=== PATIENT | female | born 1985 | race American Indian/Alaskan Native ===

== ENCOUNTER 2016-10-14 01:22 | Emergency (ER) | payer MEDICAID ==
[2016-10-14] MEDS ORDERED: TORADOL IM ONE (03:17)
[2016-10-14] MEDS ORDERED: PERCOCET 5/325 PO PRN (03:17)
[2016-10-14] MEDS ORDERED: PERCOCET 5/325 PO ONE (03:36)
[2016-10-14 04:17] LABS: Bilirubin,Urine NEG (Negative); Blood,Urine NEG (Negative); Ketones,Urine NEG (Negative); Leukocyte Esterase,Urine NEG (Negative); Mucus,Urine 2+ /HPF; Nitrite,Urine NEG (Negative); Protein,Urine <15 mg/dL mg/dL (Negative); Urobilinogen,Urine < 2.0 mg/dL (<2.0)
--- NOTE | 2016-10-14 04:48 | Ultrasound Report ---
FINAL REPORT PROCEDURE: US PELVIS TRANSVAGINAL WITH DOPPLER TECHNIQUE: Real-time transvaginal sonography in multiple planes of the pelvis was performed with image documentation. Grayscale, color flow Doppler imaging and velocity spectral waveform analysis of the ovaries was employed (duplex imaging). CPT 52977 and 46823 HISTORY: Left lower quadrant pelvic pain. History of ovarian cyst. COMPARISON: No prior studies are available for comparison. FINDINGS: The uterus measures 8.6 x 3.9 x 5.8 centimeters. The endometrium is normal measuring 0.7 centimeters. Overall the uterus shows no ultrasound abnormality. The right ovary measures 2.5 x 1.6 x 2.3 centimeters. The left ovary measures 2.9 x 1 9 x 2.5 centimeters. Blood flow seen to both ovaries by Doppler. Multiple small normal appearing follicular cysts noted in both ovaries. In the right ovary there is one slightly prominent follicle and/or small cyst measuring up to 1.2 centimeters. The ovaries show no ultrasound abnormality otherwise. There is no ultrasound evidence of free fluid. IMPRESSION: 1. There is a 1.2 centimeters slightly prominent follicle versus small nonspecific cyst in the right ovary. 2. Elsewhere in the right ovary and the left ovary several small normal appearing follicles noted 3. The uterus shows no ultrasound abnormality.
--- NOTE | 2016-10-14 04:56 | Ultrasound Report ---
FINAL REPORT PROCEDURE: US PELVIS TRANSABDOMINAL WITH DOPPLER TECHNIQUE: Real-time transabdominal sonography in multiple planes of the pelvis was performed with image documentation. Grayscale, color flow Doppler imaging and velocity spectral waveform analysis of the ovaries was employed (duplex imaging). CPT 21798 and 85332 HISTORY: Left lower quadrant pelvic pain. History of ovarian cyst. COMPARISON: No prior studies are available for comparison. FINDINGS: The uterus measures 8.6 x 3.9 x 5.8 centimeters. The endometrium is normal measuring 0.7 centimeters. Overall the uterus shows no ultrasound abnormality. The right ovary measures 2.5 x 1.6 x 2.3 centimeters. The left ovary measures 2.9 x 1 9 x 2.5 centimeters. Blood flow seen to both ovaries by Doppler. Multiple small normal appearing follicular cysts noted in both ovaries. In the right ovary there is one slightly prominent follicle and/or small cyst measuring up to 1.2 centimeters. The ovaries show no ultrasound abnormality otherwise. There is no ultrasound evidence of free fluid. IMPRESSION: 1. There is a 1.2 centimeters slightly prominent follicle versus small nonspecific cyst in the right ovary. 2. Elsewhere in the right ovary and the left ovary several small normal appearing follicles noted 3. The uterus shows no ultrasound abnormality.
--- NOTE | 2016-10-14 05:17 | Emergency Department Report ---
ED Abdominal Pain HPI - General Chief Complaint: Abdominal Pain Stated Complaint: OVARIN CYST PAIN/LT SIDE Time Seen by Provider: 10/14/16 02:57 Source: patient Mode of arrival: Ambulatory Limitations: No Limitations - History of Present Illness Initial Comments: 31-year-old female with a past medical history of ovarian cysts and tubal ligation presents to the hospital complaining of left lower abdominal pain 1 week. Patient states she has had similar pain in the past secondary to ovarian cyst and has pain intermittently since July. Pain rated 7/10 intensity, throbbing and cramping and burning, worse palpation, no relieving factors. Denies vomiting, dysuria, vaginal bleeding, or vaginal discharge. Positive intermittent nausea and 2 episodes of loose stools this week. She was last seen here July 2016 and diagnosed with a left-sided hemorrhagic cyst after surgery 05/30/2016 for the same cysts. Patient was subsequently put on control pills to control her cysts. 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) this Sunday. Severity scale (0 -10): 9 - Related Data Previous Rx's Medication Instructions Recorded Last Taken Type Loratadine [Claritin] 10 mg PO DAILY #30 tablet 11/23/14 Unknown Rx HYDROcodone/APAP 5-325 [[place] 1 each PO Q6HR PRN #14 tablet 07/26/16 Unknown Rx 5/325] Nitrofurantoin [place]/M-Cryst 100 mg PO Q12HR #14 capsule 07/26/16 Unknown Rx [Macrobid CAP] Docusate Sodium [Colace] 100 mg PO BID PRN #20 capsule 10/14/16 Unknown Rx Ibuprofen [Motrin] 800 mg PO Q8HR PRN #30 tablet 10/14/16 Unknown Rx Allergies Allergy/AdvReac Type Severity Reaction Status Date / Time banana Allergy throat Verified 05/23/16 11:23 itches ED Review of Systems ROS: Stated complaint: OVARIN CYST PAIN/LT SIDE Other details as noted in HPI Comment: All other systems reviewed and negative Other: Constitutional: No fevers chills or weight loss Eyes: No eye pain visual changes or discharge ENT: No ear pain or throat pain Neck: Denies pain Respiratory: Denies cough wheezing shortness of breath Cardiovascular: Denies chest pain, palpitations, syncope GI: As per HPI : Denies dysuria, urinary frequency, or urgency Musculoskeletal: Denies back pain, joint swelling Skin: Denies rash, lesions, erythema Neurologic: Denies headache, numbness, weakness Psychiatric: Denies suicidal ideation, hallucinations ED Past Medical Hx - Past Medical History Previous Medical History?: Yes Hx Arthritis: Yes Hx Headaches / Migraines: Yes Hx Asthma: Yes Additional medical history: Ovarian Cyst removed in 2016 - Surgical History Past Surgical History?: Yes Additional Surgical History: TUBAL LIGATION 2008. Ovarian Cyst Removal 05/31/2016 - Social History Smoking Status: Current Every Day Smoker Substance Use Type: Non Opiate Pain, Prescribed - Medications Home Medications: Home Medications Medication Instructions Recorded Confirmed Last Taken Type Loratadine [Claritin] 10 mg PO DAILY #30 tablet 11/23/14 Unknown Rx HYDROcodone/APAP 5-325 [[place] 1 each PO Q6HR PRN #14 tablet 07/26/16 Unknown Rx 5/325] Nitrofurantoin [place]/M-Cryst 100 mg PO Q12HR #14 capsule 07/26/16 Unknown Rx [Macrobid CAP] Docusate Sodium [Colace] 100 mg PO BID PRN #20 capsule 10/14/16 Unknown Rx Ibuprofen [Motrin] 800 mg PO Q8HR PRN #30 tablet 10/14/16 Unknown Rx ED Physical Exam - General Limitations: No Limitations - Other Other exam information: General: No limitations, patient is alert in no acute distress Head exam: Atraumatic, normocephalic Eyes exam: Normal appearance, pupils equal reactive to light, extraocular movements intact ENT: Moist mucous membrane, normal oropharynx Neck exam: Normal inspection, full range of motion, no meningismus nontender Respiratory exam: Clear to auscultation bilateral, no wheezes, rales, crackles Cardiovascular: Normal rate and rhythm, normal heart sounds Abdomen: Soft, nondistended, left lower quadrant tenderness, with normal bowel sounds, no rebound, or guarding : declined Extremity: Full range of motion normal inspection no deformity Back: Normal Inspection, full range of motion, no tenderness Neurologic: Alert, oriented x3, cranial nerves intact, no motor or sensory deficit Psychiatric: normal affect, normal mood Skin: Warm, dry, intact ED Course Vital Signs 10/14/16 10/14/16 01:34 03:09 Temperature 98.2 F Pulse Rate 107 H Respiratory 22 18 Rate Blood Pressure 140/103 O2 Sat by Pulse 100 98 Oximetry ED Medical Decision Making - Radiology Data Radiology results: report reviewed vaginal/pelvic ultrasound: 1.2 cm slightly prominent follicle versus small nonspecific cysts in the right ovary. No acute ultrasound ABNORMALITY OF THE UTERUS - Medical Decision Making Patient appears a left lower quadrant pain that is chronic and intermittent. Cough identified at this time. Urinalysis unremarkable. negative. Patient denies fever and states she has had similar pain in the past. We'll treat symptomatically encourage [employer] DELIVERY [employer]IVER follow-up as scheduled - Differential Diagnosis ovarian cyst, UTI, renal colic, diverticulitis Critical Care Time: No Critical care attestation.: If time is entered above; I have spent that time in minutes in the direct care of this critically ill patient, excluding procedure time. ED Disposition Clinical Impression: Intermittent left lower quadrant abdominal pain Disposition: DISCHARGED TO HOME OR SELFCARE Is pt being admited?: No Does the pt Need Aspirin: No Condition: Stable Instructions: Abdominal Pain (ED) Additional Instructions: Take the medication as prescribed. Return if symptoms worsen. Follow up will put her MILK DELIVERY DRIVER doctor as scheduled Prescriptions: Docusate Sodium [Colace] 100 mg PO BID PRN #20 capsule PRN Reason: Constipation Ibuprofen [Motrin] 800 mg PO Q8HR PRN #30 tablet PRN Reason: Pain Referrals: DARIAN JIANG MD [Primary Care Provider] - 3-5 Days XIOMARA MORTON MD [Staff Physician] - 3-5 Days Time of Disposition: 05:22
[2016-10-14 05:24] VITALS: BP 124/82
== END 2016-10-14 05:45 | disposition home or self-care (01) ==
LOC: ED 01:22
DX: R10.32 Left lower quadrant pain (principal); M19.90 Unspecified osteoarthritis, unspecified site; G43.909 Migraine, unspecified, not intractable, without status migrainosus; J45.909 Unspecified asthma, uncomplicated; F17.200 Nicotine dependence, unspecified, uncomplicated; Z98.51 Tubal ligation status; Z91.018 Allergy to other foods
CPT/HCPCS: 76830; 81001; 81025; 93975; 96372; 99283; J1885

== ENCOUNTER 2017-01-02 04:52 | Emergency (ER) | payer MEDICAID ==
[2017-01-02] MEDS ORDERED: TYLENOL ONE (04:57)
[2017-01-02] MEDS ORDERED: TYLENOL PO ONE (05:08)
[2017-01-02 05:36] LABS: Basophils % (Auto) 1.1 % (0.0-1.8); Eosinophils % (Auto) 3.3 % (0.0-4.3); Hematocrit 37.6 % (30.3-42.9); Hemoglobin 12.2 gm/dl (10.1-14.3); Mean Corpuscular HGB Conc 33 % (30-34); Mean Corpuscular Hemoglobin 27 pg (28-32); Mean Corpuscular Volume 83 fl (79-97); Platelet Count 331 K/mm3 (140-440); Red Blood Count 4.52 M/mm3 (3.65-5.03); Red Cell Distribution Width 13.8 % (13.2-15.2); White Blood Count 8.7 K/mm3 (4.5-11.0)
[2017-01-02 06:04] LABS: Alanine Aminotransferase 14 units/L (7-56); Albumin/Globulin Ratio 1.3 %; Alkaline Phosphatase 64 units/L (35-129); Anion Gap 18 mmol/L; BUN/Creatinine Ratio 18.88; Bilirubin,Total 0.2 mg/dL (0.1-1.2); Blood Urea Nitrogen 17 mg/dL (7-17); Carbon Dioxide 25 mmol/L (22-30); Chloride 104.7 mmol/L (98-107); Glucose 103 mg/dL (65-100); Lipase 40 units/L (13-60); Potassium 4.5 mmol/L (3.6-5.0); Sodium 143 mmol/L (137-145); Total Protein 7.2 g/dL (6.3-8.2)
[2017-01-02 08:10] LABS: Bilirubin,Urine NEG (Negative); Blood,Urine SM (Negative); Ketones,Urine TR mg/dL (Negative); Leukocyte Esterase,Urine NEG (Negative); Mucus,Urine 1+ /HPF; Nitrite,Urine NEG (Negative); Protein,Urine <15 mg/dL mg/dL (Negative); WBC,Urine < 1.0 /HPF (0.0-6.0)
[2017-01-02] MEDS ORDERED: TORADOL IV ONE (15:01)
--- NOTE | 2017-01-02 15:02 | Emergency Department Report ---
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 Patient states she is out of any pain medication. Patient has no nausea vomiting or diarrhea. Mode of arrival: private car Source: Patient old chart Began: Chronic Duration: Over a year Context: History of left ovarian cyst that has resolved. Quality: Dull Severity: 5 out of 10 Improved with: Nothing Worsened with: Nothing Associated signs and symptoms: See above ED Past Medical Hx - Past Medical History Previous Medical History?: Yes Hx Arthritis: Yes Hx Headaches / Migraines: Yes Hx Asthma: Yes Additional medical history: Ovarian Cyst removed in 2015 - Surgical History Past Surgical History?: Yes Additional Surgical History: TUBAL LIGATION 2008. Ovarian Cyst Removal 05/31/2016 - Social History Smoking Status: Current Every Day Smoker Substance Use Type: Alcohol - Medications Home Medications: Home Medications Medication Instructions Recorded Confirmed Last Taken Type Nitrofurantoin [place]/M-Cryst 100 mg PO Q12HR #14 capsule 07/26/16 Unknown Rx [Macrobid CAP] Docusate Sodium [Colace] 100 mg PO BID PRN #20 capsule 10/14/16 Unknown Rx HYDROcodone/APAP 5-325 [[place] 1 each PO Q6HR PRN #20 tablet 10/14/16 Unknown Rx 5-325 mg TAB] Ibuprofen [Motrin] 800 mg PO Q8HR PRN #30 tablet 10/14/16 Unknown Rx traMADol [Ultram 50 MG tab] 50 mg PO Q6HR PRN #14 tablet 01/02/17 Unknown Rx ED Review of Systems ROS: Stated complaint: ABD PAIN/NAUSEA Other details as noted in HPI ROS Constitutional: No fever ENT: No uri symptoms Cardiovascular: No chest pain Respiratory: No sob or cough GI: No nausea vomiting or diarrhea : No dysuria frequency or urgency, Skin: No rash Neuro: No focal weakness or numbness Psych: No depression Franky/lymph: No edema Physical Exam - Physical Exam Vital Signs: Vital Signs 01/02/17 05:03 Temperature 98.6 F Pulse Rate 109 H Respiratory 20 Rate Blood Pressure 154/105 [Right] O2 Sat by Pulse 100 Oximetry Physical Exam: GENERAL: The patient is well-developed well-nourished . HEENT: Normocephalic. Atraumatic. Extraocular motions are intact. Patient has moist mucous membranes. NECK: Supple. No meningitic signs are noted. There is no adenopathy noted. CHEST/LUNGS: Clear to auscultation. There is no respiratory distress noted. HEART/CARDIOVASCULAR: Regular. There is no tachycardia. There is no gallop rub or murmur. ABDOMEN: Abdomen is soft, nontender. Patient has normal bowel sounds. There is no abdominal distention. SKIN: There is no rash. There is no edema. There is no diaphoresis. NEURO: The patient is awake, alert, and oriented. The patient is cooperative. The patient has no focal neurologic deficits. The patient has normal speech. MUSCULOSKELETAL: There is no tenderness or deformity. There is no limitation range of motion. There is no evidence of acute injury. ED Course Vital Signs 01/02/17 05:03 Temperature 98.6 F Pulse Rate 109 H Respiratory 20 Rate Blood Pressure 154/105 [Right] O2 Sat by Pulse 100 Oximetry - Reevaluation(s) Reevaluation #1: 01/02/17 Patient given a shot of Toradol and will be referred back to her GI specialist. ED Medical Decision Making - Lab Data Result diagrams: 01/02/17 05:19 01/02/17 05:19 Laboratory Tests 01/02/17 01/02/17 01/02/17 05:19 05:19 07:31 Lipase 40 HCG, Qual Negative Ur Specific Pillow 1.032 H Urine Protein <15 mg/dl Ur Leukocyte Esterase Neg Urine WBC (Auto) < 1.0 Urine RBC (Auto) 6.0 Critical care attestation.: If time is entered above; I have spent that time in minutes in the direct care of this critically ill patient, excluding procedure time. ED Disposition Clinical Impression: Chronic abdominal pain Disposition: DISCHARGED TO HOME OR SELFCARE Is pt being admited?: No Does the pt Need Aspirin: No Condition: Stable Instructions: Abdominal Pain (ED) Prescriptions: traMADol [Ultram 50 MG tab] 50 mg PO Q6HR PRN #14 tablet PRN Reason: Pain Referrals: DARIAN JIANG MD [Primary Care Provider] - 3-5 Days MARYAM MOYER MD [Staff Physician] - 7-10 days Time of Disposition: 15:00
[2017-01-02 15:25] VITALS: BP 126/76
== END 2017-01-02 15:28 | disposition home or self-care (01) ==
LOC: ED 04:52
DX: R10.32 Left lower quadrant pain (principal); G89.29 Other chronic pain; M19.90 Unspecified osteoarthritis, unspecified site; G43.909 Migraine, unspecified, not intractable, without status migrainosus; J45.909 Unspecified asthma, uncomplicated; F17.200 Nicotine dependence, unspecified, uncomplicated; Z98.890 Other specified postprocedural states
CPT/HCPCS: 36415; 80053; 81001; 83690; 84703; 85025; 96374; 99283; J1885

== ENCOUNTER 2017-02-03 16:38 | Emergency (ER) | payer SELFPAY ==
[2017-02-03] MEDS ORDERED: DUONEB 0.5 MG-3 MG/3 ML SOLN IH ONE (16:58)
[2017-02-03 18:06] LABS: Hematocrit 38.1 % (30.3-42.9); Hemoglobin 12.4 gm/dl (10.1-14.3); Mean Corpuscular HGB Conc 33 % (30-34); Mean Corpuscular Hemoglobin 27 pg (28-32); Mean Corpuscular Volume 84 fl (79-97); Platelet Count 313 K/mm3 (140-440); Red Blood Count 4.55 M/mm3 (3.65-5.03); Red Cell Distribution Width 14.2 % (13.2-15.2); White Blood Count 13.4 K/mm3 (4.5-11.0)
[2017-02-03 18:17] LABS: Anion Gap 21 mmol/L; BUN/Creatinine Ratio 8.57; Blood Urea Nitrogen 6 mg/dL (7-17); Calcium 9.4 mg/dL (8.4-10.2); Carbon Dioxide 24 mmol/L (22-30); Glucose 86 mg/dL (65-100); Potassium 3.5 mmol/L (3.6-5.0); Sodium 140 mmol/L (137-145)
[2017-02-03 21:13] VITALS: BP 129/87
[2017-02-03] MEDS ORDERED: DELTASONE PO ONE (21:38)
[2017-02-03] MEDS ORDERED: ATROVENT IH ONE (21:38)
[2017-02-03] MEDS ORDERED: PROVENTIL IH ONE (21:38)
[2017-02-03] MEDS ORDERED: TESSALON PERLES PO ONE (21:39)
--- NOTE | 2017-02-03 22:07 | Emergency Department Report ---
HPI - General Chief Complaint: Upper Respiratory Infection Time Seen by Provider: 02/03/17 21:32 - HPI HPI: Room 23 The patient is a 31-year-old female presenting with a chief complaint of cough and congestion. Patient states she feels like she has the flu. The patient states for the past 3 days she has had a cough has been nonproductive. Patient admits to rhinorrhea and itchy throat. Patient complains of chest tightness and a headache. Patient admits to subjective fever. Patient denies any sick contacts. Location: [see above] Duration: 3 Days Quality: "Like The flu" Severity: Moderate Modifying factors: [see above] Context: [see above] Mode of transportation: [not driving] ED Past Medical Hx - Past Medical History Hx Arthritis: Yes Hx Headaches / Migraines: Yes Hx Asthma: Yes Additional medical history: Ovarian Cyst removed in 2015 - Surgical History Additional Surgical History: TUBAL LIGATION 2008. Ovarian Cyst Removal 05/31/2016 - Family History Family history: no significant - Social History Smoking Status: Current Every Day Smoker Substance Use Type: Alcohol - Medications Home Medications: Home Medications Medication Instructions Recorded Confirmed Last Taken Type Nitrofurantoin [place]/M-Cryst 100 mg PO Q12HR #14 capsule 07/26/16 Unknown Rx [Macrobid CAP] Docusate Sodium [Colace] 100 mg PO BID PRN #20 capsule 10/14/16 Unknown Rx HYDROcodone/APAP 5-325 [[place] 1 each PO Q6HR PRN #20 tablet 10/14/16 Unknown Rx 5-325 mg TAB] Ibuprofen [Motrin] 800 mg PO Q8HR PRN #30 tablet 10/14/16 Unknown Rx traMADol [Ultram 50 MG tab] 50 mg PO Q6HR PRN #14 tablet 01/02/17 Unknown Rx ALBUTEROL Inhaler [Proair] 2 puff IH QID PRN #1 inhalation 02/03/17 Unknown Rx Azithromycin [Zithromax Z-JESSI] 0 mg PO DAILY #6 tab 02/03/17 Unknown Rx Benzonatate [Tessalon Perles] 100 mg PO Q8HR #30 capsule 02/03/17 Unknown Rx Prednisone [predniSONE 10 mg 10 mg PO .TAPER #1 tab.ds.pk 02/03/17 Unknown Rx (6-Day Pack, 21 Tabs)] traMADol [Ultram] 50 mg PO Q6HR PRN #14 tablet 02/03/17 Unknown Rx ED Review of Systems ROS: Stated complaint: WHEEZING/COUGH/BODY ACHES Other details as noted in HPI Comment: All other systems reviewed and negative Constitutional: fever (subjective) Eyes: denies: eye pain, eye discharge, vision change ENT: throat pain, congestion, other (rhinorrhea). denies: ear pain Respiratory: cough Cardiovascular: denies: palpitations Endocrine: no symptoms reported Gastrointestinal: denies: abdominal pain, nausea, diarrhea Genitourinary: denies: urgency, dysuria, discharge Musculoskeletal: denies: back pain, joint swelling, arthralgia Skin: denies: rash, lesions Neurological: denies: headache, weakness, paresthesias Psychiatric: denies: anxiety, depression Hematological/Lymphatic: denies: easy bleeding, easy bruising Physical Exam - Physical Exam Vital Signs: Vital Signs 02/03/17 02/03/17 02/03/17 16:54 17:15 17:24 Temperature 99.3 F Pulse Rate 117 H Pulse Rate [ 104 H 100 H Anterior Bilateral Throughout] Respiratory 24 Rate Respiratory 18 18 Rate [Anterior Bilateral Throughout] Blood Pressure 149/108 Blood Pressure [Right] O2 Sat by Pulse 98 Oximetry 02/03/17 02/03/17 21:12 21:58 Temperature Pulse Rate 104 H Pulse Rate [ 94 H Anterior Bilateral Throughout] Respiratory 14 Rate Respiratory 20 Rate [Anterior Bilateral Throughout] Blood Pressure Blood Pressure 129/87 [Right] O2 Sat by Pulse 100 Oximetry Physical Exam: GENERAL: The patient is well-developed well-nourished female lying on stretcher exhibiting frequent coughing. [] HEENT: Normocephalic. Atraumatic. Extraocular motions are intact. Patient has moist mucous membranes. Oropharynx clear NECK: Supple. Trachea midline CHEST/LUNGS: Visual rhonchi and wheezing. Frequent coughing. There is no respiratory distress noted. HEART/CARDIOVASCULAR: Regular. There is no tachycardia. There is no gallop rub or murmur. ABDOMEN: Abdomen is soft, nontender. Patient has normal bowel sounds. There is no abdominal distention. SKIN: There is no rash. There is no edema. There is no diaphoresis. NEURO: The patient is awake, alert, and oriented. The patient is cooperative. The patient has normal speech MUSCULOSKELETAL:There is no evidence of acute injury. ED Course Vital Signs 02/03/17 02/03/17 02/03/17 16:54 17:15 17:24 Temperature 99.3 F Pulse Rate 117 H Pulse Rate [ 104 H 100 H Anterior Bilateral Throughout] Respiratory 24 Rate Respiratory 18 18 Rate [Anterior Bilateral Throughout] Blood Pressure 149/108 Blood Pressure [Right] O2 Sat by Pulse 98 Oximetry 02/03/17 02/03/17 21:12 21:58 Temperature Pulse Rate 104 H Pulse Rate [ 94 H Anterior Bilateral Throughout] Respiratory 14 Rate Respiratory 20 Rate [Anterior Bilateral Throughout] Blood Pressure Blood Pressure 129/87 [Right] O2 Sat by Pulse 100 Oximetry ED Medical Decision Making - Lab Data Result diagrams: 02/03/17 17:45 02/03/17 17:45 Laboratory Tests 02/03/17 02/03/17 02/03/17 17:45 17:45 22:17 WBC 13.4 H RBC 4.55 Hgb 12.4 Hct 38.1 MCV 84 MCH 27 L MCHC 33 RDW 14.2 Plt Count 313 Sodium 140 Potassium 3.5 L Chloride 99.0 Carbon Dioxide 24 Anion Gap 21 BUN 6 L Creatinine 0.7 Estimated GFR > 60 BUN/Creatinine Ratio 8.57 Glucose 86 Calcium 9.4 Urine HCG, Qual Negative Influenza negative - Radiology Data Radiology results: image reviewed (chest x-ray) interpreted by me: Chest x-ray-no focal infiltrates, no pneumothorax - Differential Diagnosis pneumonia, acute bronchitis, upper respiratory infection, influenza Critical care attestation.: If time is entered above; I have spent that time in minutes in the direct care of this critically ill patient, excluding procedure time. ED Disposition Clinical Impression: Acute bronchitis Disposition: DISCHARGED TO HOME OR SELFCARE Is pt being admited?: No Does the pt Need Aspirin: No Condition: Stable Instructions: Acute Bronchitis (ED) Additional Instructions: Return to the emergency department immediately should you develop worsening symptoms, fever, inability to tolerate food or liquid or any other concerns. Prescriptions: ALBUTEROL Inhaler [Proair] 2 puff IH QID PRN #1 inhalation PRN Reason: Shortness Of Breath Azithromycin [Zithromax Z-JESSI] 0 mg PO DAILY #6 tab Benzonatate [Tessalon Perles] 100 mg PO Q8HR #30 capsule Prednisone [predniSONE 10 mg (6-Day Pack, 21 Tabs)] 10 mg PO .TAPER #1 tab.ds.pk traMADol [Ultram] 50 mg PO Q6HR PRN #14 tablet PRN Reason: Pain Referrals: DARIAN JIANG MD [Primary Care Provider] - 3-5 Days Time of Disposition: 23:43
[2017-02-03] MEDS ORDERED: FIORICET PO ONE (23:42)
--- NOTE | 2017-02-04 09:51 | XRay Report ---
CHEST TWO VIEWS: 02/03/17 23:29 CLINICAL: Cough and shortness of breath. COMPARISON: 01/20/15 FINDINGS: Normal heart and pulmonary vasculature. The lungs are normally expanded and clear.The bones and soft tissues are unremarkable. IMPRESSION: Normal chest.
== END 2017-02-03 23:51 | disposition home or self-care (01) ==
LOC: ED 16:38
DX: J20.9 Acute bronchitis, unspecified (principal); G43.909 Migraine, unspecified, not intractable, without status migrainosus; J45.909 Unspecified asthma, uncomplicated; F17.200 Nicotine dependence, unspecified, uncomplicated
CPT/HCPCS: 36415; 71020; 80048; 81025; 85027; 87400; 94640; 99284; J7512

== ENCOUNTER 2017-02-04 19:56 | Emergency (ER) | payer SELFPAY ==
[2017-02-04] MEDS ORDERED: PROVENTIL IH ONE (20:34)
[2017-02-04] MEDS ORDERED: TESSALON PERLES PO ONE (21:36)
[2017-02-04] MEDS ORDERED: DELTASONE PO ONE (21:36)
--- NOTE | 2017-02-04 21:40 | Emergency Department Report ---
HPI - General Chief Complaint: Upper Respiratory Infection Time Seen by Provider: 02/04/17 21:27 - HPI HPI: The patient is a 31-year-old female who presents for evaluation of dyspnea and cough. The patient has a history of asthma. The patient reports 3 days of a harsh nonproductive cough, severe, rating her from sleeping, and associated with progressive dyspnea, severe and constant for the past one day, exacerbated with coughing and exertion, improved with rest and home albuterol inhaler. The patient denies fever, sore throat, chest pain, hemoptysis, unilateral leg swelling, oral contraceptive use, recent immobilization, recent surgery, history of DVT or PE. ED Past Medical Hx - Past Medical History Previous Medical History?: Yes Hx Arthritis: Yes Hx Headaches / Migraines: Yes Hx Asthma: Yes Additional medical history: Ovarian Cyst removed in 2015 - Surgical History Past Surgical History?: Yes Additional Surgical History: TUBAL LIGATION 2008. Ovarian Cyst Removal 05/31/2016 - Social History Smoking Status: Current Every Day Smoker Substance Use Type: Alcohol - Medications Home Medications: Home Medications Medication Instructions Recorded Confirmed Last Taken Type Nitrofurantoin [place]/M-Cryst 100 mg PO Q12HR #14 capsule 07/26/16 Unknown Rx [Macrobid CAP] Docusate Sodium [Colace] 100 mg PO BID PRN #20 capsule 10/14/16 Unknown Rx Ibuprofen [Motrin] 800 mg PO Q8HR PRN #30 tablet 10/14/16 Unknown Rx ALBUTEROL Inhaler [Proair] 2 puff IH QID PRN #1 inhalation 02/03/17 Unknown Rx Azithromycin [Zithromax Z-JESSI] 0 mg PO DAILY #6 tab 02/03/17 Unknown Rx Benzonatate [Tessalon Perles] 100 mg PO Q8HR #30 capsule 02/03/17 Unknown Rx Promethazine /Codeine 5 ml PO Q6H PRN #118 ml 02/04/17 Unknown Rx [Phenergan/Codeine 6.25-10 mg/5 ml] predniSONE [Deltasone] 20 mg PO QDAY #5 tab 02/04/17 Unknown Rx ED Review of Systems ROS: Stated complaint: ASTHMA/WHEEZING/COUGH Other details as noted in HPI Constitutional: denies: fever ENT: denies: throat or neck pain Respiratory: reports cough, shortness of breath Cardiovascular: denies: chest pain Endocrine: denies unexplained weight loss or gain Gastrointestinal: denies: abdominal pain, nausea Genitourinary: denies: dysuria Musculoskeletal: denies: leg swelling Skin: denies: rash Neurological: denies: headache Hematological/Lymphatic: denies: easy bleeding or easy bruising Psych: denies sadness or hopelessness Physical Exam - Physical Exam Vital Signs: Vital Signs 02/04/17 02/04/17 02/04/17 20:09 20:56 21:20 Temperature 98.8 F Pulse Rate 110 H Pulse Rate [ 110 H 110 H Throughout] Respiratory 20 Rate Respiratory 20 20 Rate [ Throughout] Blood Pressure 140/94 O2 Sat by Pulse 100 Oximetry Physical Exam: General: well-nourished, well-developed, no acute distress Head: Normocephalic, atraumatic Eyes: normal sclera ENT: Mucous membranes are pink and moist, bilateral nasal congestion present Neck: trachea midline, neck supple, No neck stiffness, no cervical adenopathy Respiratory: Mildly diminished breath sounds and wheezing present throughout lung crockett bilaterally Cardio: S1 and S2 present, no murmurs, rubs, gallops, capillary refill is brisk Abdomen: Normoactive bowel sounds, soft abdomen, no rigidity, no guarding or rebound tenderness Musc: No pitting edema Skin: No rash Neuro: no facial drooping, normal speech Psych: Normal affect ED Course Vital Signs 02/04/17 02/04/17 02/04/17 20:09 20:56 21:20 Temperature 98.8 F Pulse Rate 110 H Pulse Rate [ 110 H 110 H Throughout] Respiratory 20 Rate Respiratory 20 20 Rate [ Throughout] Blood Pressure 140/94 O2 Sat by Pulse 100 Oximetry ED Medical Decision Making - Medical Decision Making The patient was seen and examined by myself. The patient is placed on a diagnostic cardiac sonographer and continuous pulse ox. On initial evaluation, the patient was found to be in no distress. Evaluation orders were placed. EKG was negative for findings suggestive of acute cardiac infarct. The patient is given Tessalon Perles for their cough, albuterol breathing treatment, and a tablet of prednisone for treatment of her asthma exacerbation. The patient was reevaluated and reported that their symptoms were markedly improved. On reexamination the patient is found to have normal respiratory rate and O2 sat on pulse oximetry, with no costal retractions or diminishment of breath sounds on auscultation. The patient is stable for discharge with outpatient follow- up. The patient is given follow-up and return instructions. The patient expressed understanding and agreed with the plan. The patient is discharged in stable condition. Critical care attestation.: If time is entered above; I have spent that time in minutes in the direct care of this critically ill patient, excluding procedure time. ED Disposition Clinical Impression: Asthma with acute exacerbation in adult, Upper respiratory infection, acute Disposition: DISCHARGED TO HOME OR SELFCARE Is pt being admited?: No Does the pt Need Aspirin: No Condition: Stable Instructions: Asthma (ED), Upper Respiratory Infection (ED) Additional Instructions: Do not take more than the prescribed dose of phenergan with codeine/cough medicine, or combine or take the cough medicine prescribed to you today with narcotic pain medicine such as norco/vicodin/percocet/tylenol 3, sleeping medicine, anxiety medicines or other sedatives, or with alcohol, as doing so may cause central nervous system sedation and respiratory depression, and potentially cause you to stop breathing and . Additionally, do not drive a vehicle, operate heavy machinery, or engage in any activity that would cause harm to yourself or others after taking the pain medicine prescribed to you. Prescriptions: predniSONE [Deltasone] 20 mg PO QDAY #5 tab Promethazine /Codeine [Phenergan/Codeine 6.25-10 mg/5 ml] 5 ml PO Q6H PRN #118 ml PRN Reason: cough Referrals: PRIMARY CARE, [Primary Care Provider] - 3-5 Days Time of Disposition: 21:39
[2017-02-04 22:19] VITALS: BP 129/81
== END 2017-02-04 22:19 | disposition home or self-care (01) ==
LOC: ED 19:56
DX: J45.901 Unspecified asthma with (acute) exacerbation (principal); J06.9 Acute upper respiratory infection, unspecified; M19.90 Unspecified osteoarthritis, unspecified site; G43.909 Migraine, unspecified, not intractable, without status migrainosus; F17.200 Nicotine dependence, unspecified, uncomplicated; Z91.018 Allergy to other foods
CPT/HCPCS: 94640; 99283; J7512

== ENCOUNTER 2017-03-15 02:00 | Emergency (ER) | payer MEDICAID ==
[2017-03-15 04:12] LABS: Bilirubin,Urine NEG (Negative); Blood,Urine NEG (Negative); Ketones,Urine TR mg/dL (Negative); Leukocyte Esterase,Urine NEG (Negative); Mucus,Urine 3+ /HPF; Nitrite,Urine NEG (Negative); WBC,Urine < 1.0 /HPF (0.0-6.0)
[2017-03-15 04:56] LABS: Basophils % (Auto) 0.7 % (0.0-1.8); Eosinophils % (Auto) 3.5 % (0.0-4.3); Hematocrit 33.7 % (30.3-42.9); Hemoglobin 10.9 gm/dl (10.1-14.3); Mean Corpuscular HGB Conc 33 % (30-34); Mean Corpuscular Hemoglobin 27 pg (28-32); Mean Corpuscular Volume 83 fl (79-97); Platelet Count 289 K/mm3 (140-440); Red Blood Count 4.05 M/mm3 (3.65-5.03); Red Cell Distribution Width 14.5 % (13.2-15.2); White Blood Count 7.7 K/mm3 (4.5-11.0)
[2017-03-15 05:06] LABS: Alanine Aminotransferase 10 units/L (7-56); Albumin 3.9 g/dL (3.9-5); Albumin/Globulin Ratio 1.4 %; Alkaline Phosphatase 50 units/L (35-129); Anion Gap 19 mmol/L; BUN/Creatinine Ratio 16.25; Blood Urea Nitrogen 13 mg/dL (7-17); Calcium 8.5 mg/dL (8.4-10.2); Carbon Dioxide 24 mmol/L (22-30); Glucose 84 mg/dL (65-100); Lipase 35 units/L (13-60); Potassium 3.8 mmol/L (3.6-5.0); Sodium 140 mmol/L (137-145); Total Protein 6.7 g/dL (6.3-8.2)
[2017-03-15] MEDS ORDERED: MORPHINE IV ONE (07:07)
[2017-03-15] MEDS ORDERED: ZOFRAN IV ONE (07:07)
[2017-03-15] MEDS ORDERED: NACL 0.9% 1000 ML 1,000 ML IV ONE (07:07)
[2017-03-15] MEDS ORDERED: NACL ONE (07:10)
--- NOTE | 2017-03-15 07:35 | Emergency Department Report ---
ED Abdominal Pain HPI - General Chief Complaint: Abdominal Pain Stated Complaint: NAUSEA/ABD PAIN Time Seen by Provider: 03/15/17 07:01 Source: patient, family Mode of arrival: Ambulatory Limitations: No Limitations - History of Present Illness Initial Comments: Patient reports left lower abdominal pain 4 days. Reports nausea without any vomiting. She is scheduled to have colonoscopy in 03/20/2017. Denies any fever or chills. Pain to quadrant is 8 out of 10 and cramping. Denies any fever or chills. Denies any urinary burning and frequency urgency. No [id number] medication taken and had bilateral tubal ligation in 2008 and had cysts removed from ovary 2015. Says she has problems with ovarian cyst especially to the left that keeps coming back. Sees Dr. Hill at [facility] [place] [employer] . Denies vaginal bleed or discharge discharge. Patient shows elevated at 157/109 and she said her blood pressure tends to be elevated when she is in medical facility or when she is in pain. MD Complaint: abdominal pain Onset/Timin -: days(s) Location: LLQ Radiation: none Migration to: no migration Severity: severe Severity scale (0 -10): 8 Quality: cramping Consistency: constant Improves With: nothing Worsens With: nothing Context: other (none) Associated Symptoms: nausea. denies: vomiting, diarrhea, fever, chills, constipation, dysuria, hematemesis, melena, hematuria, anorexia, syncope Treatments Prior to Arrival: other (none) - Related Data LMP (females 10-50): other (BTL) Previous Rx's Medication Instructions Recorded Last Taken Type Nitrofurantoin [place]/M-Cryst 100 mg PO Q12HR #14 capsule 07/26/16 Unknown Rx [Macrobid CAP] Docusate Sodium [Colace] 100 mg PO BID PRN #20 capsule 10/14/16 Unknown Rx Ibuprofen [Motrin] 800 mg PO Q8HR PRN #30 tablet 10/14/16 Unknown Rx ALBUTEROL Inhaler [Proair] 2 puff IH QID PRN #1 inhalation 02/03/17 Unknown Rx Azithromycin [Zithromax Z-JESSI] 0 mg PO DAILY #6 tab 02/03/17 Unknown Rx Benzonatate [Tessalon Perles] 100 mg PO Q8HR #30 capsule 02/03/17 Unknown Rx Promethazine /Codeine 5 ml PO Q6H PRN #118 ml 02/04/17 Unknown Rx [Phenergan/Codeine 6.25-10 mg/5 ml] predniSONE [Deltasone] 20 mg PO QDAY #5 tab 02/04/17 Unknown Rx Naproxen [Naprosyn] 500 mg PO BID PRN #12 tablet 03/15/17 Unknown Rx Promethazine [Phenergan TAB] 25 mg PO Q8HR PRN #15 tab 03/15/17 Unknown Rx Allergies Allergy/AdvReac Type Severity Reaction Status Date / Time banana Allergy throat Verified 05/23/16 11:23 itches ED Review of Systems ROS: Stated complaint: NAUSEA/ABD PAIN Other details as noted in HPI Comment: All other systems reviewed and negative Constitutional: denies: chills, fever ENT: denies: throat pain Respiratory: no symptoms reported Cardiovascular: denies: chest pain, palpitations, edema, syncope Gastrointestinal: abdominal pain, nausea. denies: vomiting, diarrhea, constipation, hematemesis, hematochezia Genitourinary: denies: urgency, dysuria, frequency, hematuria, discharge Skin: denies: rash Neurological: denies: headache ED Past Medical Hx - Past Medical History Previous Medical History?: Yes Hx Arthritis: Yes Hx Headaches / Migraines: Yes Hx Asthma: Yes Additional medical history: Ovarian Cyst removed in 2015 - Surgical History Past Surgical History?: Yes Additional Surgical History: TUBAL LIGATION 2008. Ovarian Cyst Removal 05/31/2016 - Family History Family history: hypertension - Social History Smoking Status: Current Some Day Smoker Substance Use Type: Alcohol - Medications Home Medications: Home Medications Medication Instructions Recorded Confirmed Last Taken Type Nitrofurantoin [place]/M-Cryst 100 mg PO Q12HR #14 capsule 07/26/16 Unknown Rx [Macrobid CAP] Docusate Sodium [Colace] 100 mg PO BID PRN #20 capsule 10/14/16 Unknown Rx Ibuprofen [Motrin] 800 mg PO Q8HR PRN #30 tablet 10/14/16 Unknown Rx ALBUTEROL Inhaler [Proair] 2 puff IH QID PRN #1 inhalation 02/03/17 Unknown Rx Azithromycin [Zithromax Z-JESSI] 0 mg PO DAILY #6 tab 02/03/17 Unknown Rx Benzonatate [Tessalon Perles] 100 mg PO Q8HR #30 capsule 02/03/17 Unknown Rx Promethazine /Codeine 5 ml PO Q6H PRN #118 ml 02/04/17 Unknown Rx [Phenergan/Codeine 6.25-10 mg/5 ml] predniSONE [Deltasone] 20 mg PO QDAY #5 tab 02/04/17 Unknown Rx Naproxen [Naprosyn] 500 mg PO BID PRN #12 tablet 03/15/17 Unknown Rx Promethazine [Phenergan TAB] 25 mg PO Q8HR PRN #15 tab 03/15/17 Unknown Rx ED Physical Exam - General Limitations: No Limitations General appearance: alert, in no apparent distress - Head Head exam: Present: atraumatic, normocephalic, normal inspection - Eye Eye exam: Present: normal appearance, PERRL, EOMI. Absent: periorbital swelling , periorbital tenderness Pupils: Present: normal accommodation - ENT ENT exam: Present: normal exam, normal orophraynx, mucous membranes moist - Neck Neck exam: Present: normal inspection, full ROM. Absent: tenderness, meningismus, lymphadenopathy - Respiratory Respiratory exam: Present: normal lung sounds bilaterally. Absent: respiratory distress, chest wall tenderness - Cardiovascular Cardiovascular Exam: Present: regular rate, normal rhythm, normal heart sounds - GI/Abdominal GI/Abdominal exam: Present: soft, tenderness, guarding, normal bowel sounds. Absent: distended, rebound, rigid, organomegaly, mass, hernia - Extremities Exam Extremities exam: Present: normal inspection, full ROM, normal capillary refill. Absent: tenderness, pedal edema, joint swelling, calf tenderness - Back Exam Back exam: Present: full ROM. Absent: tenderness, CVA tenderness (R), CVA tenderness (L), muscle spasm, paraspinal tenderness, vertebral tenderness - Neurological Exam Neurological exam: Present: alert, oriented X3, normal gait, reflexes normal. Absent: motor sensory deficit - Psychiatric Psychiatric exam: Present: normal affect, normal mood - Skin Skin exam: Present: warm, dry, intact, normal color. Absent: rash ED Course Vital Signs 03/15/17 03/15/17 02:22 07:39 Temperature 98.1 F 98.2 F Pulse Rate 79 80 Respiratory 18 18 Rate Blood Pressure 157/109 Blood Pressure 154/98 [Left] O2 Sat by Pulse 100 100 Oximetry - Reevaluation(s) Reevaluation #1: 03/15/17 07:43 CT scan done, this can segment IV fluids 1 L, Zofran and morphine IV given. Reevaluation #2: 03/15/17 08:46 Patient able to tolerate JUICE without any vomiting. ED Medical Decision Making - Lab Data Result diagrams: 03/15/17 02:49 03/15/17 02:49 Lab Results 03/15/17 03/15/17 03/15/17 Range/Units 02:49 02:49 03:33 WBC 7.7 (4.5-11.0) K/mm3 RBC 4.05 (3.65-5.03) M/mm3 Hgb 10.9 (10.1-14.3) gm/dl Hct 33.7 (30.3-42.9) % MCV 83 (79-97) fl MCH 27 L (28-32) pg MCHC 33 (30-34) % RDW 14.5 (13.2-15.2) % Plt Count 289 (140-440) K/mm3 Lymph % (Auto) 41.0 H (13.4-35.0) % [place] % (Auto) 5.4 (0.0-7.3) % Eos % (Auto) 3.5 (0.0-4.3) % Baso % (Auto) 0.7 (0.0-1.8) % Lymph # 3.2 (1.2-5.4) K/mm3 [place] # 0.4 (0.0-0.8) K/mm3 Eos # 0.3 (0.0-0.4) K/mm3 Baso # 0.1 (0.0-0.1) K/mm3 Seg Neutrophils % 49.4 (40.0-70.0) % Seg Neutrophils # 3.8 (1.8-7.7) K/mm3 Sodium 140 (137-145) mmol/L Potassium 3.8 (3.6-5.0) mmol/L Chloride 101.0 (98-107) mmol/L Carbon Dioxide 24 (22-30) mmol/L Anion Gap 19 mmol/L BUN 13 (7-17) mg/dL Creatinine 0.8 (0.7-1.2) mg/dL Estimated GFR > 60 ml/min BUN/Creatinine Ratio 16.25 % Glucose 84 (65-100) mg/dL Calcium 8.5 (8.4-10.2) mg/dL Total Bilirubin 0.30 (0.1-1.2) mg/dL AST 14 (5-40) units/L ALT 10 (7-56) units/L Alkaline Phosphatase 50 (35-129) units/L Total Protein 6.7 (6.3-8.2) g/dL Albumin 3.9 (3.9-5) g/dL Albumin/Globulin Ratio 1.4 % Lipase 35 (13-60) units/L Urine Color Yellow (Yellow) Urine Turbidity Clear (Clear) Urine pH 5.0 (5.0-7.0) Ur Specific [place] 1.033 H (1.003-1.030) Urine Protein 30 mg/dl (Negative) mg/dL Urine Glucose (UA) Neg (Negative) mg/dL Urine Ketones Tr (Negative) mg/dL Urine Blood Neg (Negative) Urine Nitrite Neg (Negative) Urine Bilirubin Neg (Negative) Urine Urobilinogen 2.0 (<2.0) mg/dL Ur Leukocyte Esterase Neg (Negative) Urine WBC (Auto) < 1.0 (0.0-6.0) /HPF Urine RBC (Auto) 7.0 (0.0-6.0) /HPF U Epithel Cells (Auto) 1.0 (0-13.0) /HPF Urine Mucus 3+ /HPF - Radiology Data Radiology results: report reviewed CT scan of the abdomen and pelvis reveals no acute abdominal process appreciated. She has a 2 x 4 x 1 point 0.9 cm left ovarian cyst. No evidence of peritoneal fluid. No evidence of abnormal masses or fluid collection within the pelvis. The abdomen is normal. The uterus and right ovary unremarkable. Bilateral tubal ligation clips are also noted. The kidneys are normal in size and position with no evidence of hydronephrosis or mass. Adrenal glands are normal. There are no intestinal obstruction or ascites. Normal appendix. The abdominal aorta is normal. The spleen and pancreas demonstrated a normal size and attenuation with no evidence of abnormal masses. The liver is normal in size and without focal deficits and no gallstone or biliary dilatation noted. - Medical Decision Making ED course: Here complaining of left lower quadrant abdominal pain with history of ovarian cysts. She was found to have left ovarian cyst with no other acute abdominal processes. Patient says she had cysts removed from her left ovary 2016 they keep coming back and her [employer] have discussed with her that if cyst returns she will have to have ovary removed. I discussed in HPI, patient lives in [facility] and she says she'll be calling this morning to schedule an appointment for follow-up visit. CT scan and lab work discussed the patient along urinalysis and she shows understanding. Patient given 1 L of normal saline in the emergency room along with morphine 4 mg IV and Zofran 4 mg IV which relieved her nausea and abdominal pain. Patient discharged home with her in stable condition with a prescription for Phenergan and naproxen. Critical care attestation.: If time is entered above; I have spent that time in minutes in the direct care of this critically ill patient, excluding procedure time. ED Disposition Clinical Impression: Left ovarian cyst, Abdominal pain, acute, left lower quadrant, Nausea alone Disposition: - TO HOME OR SELFCARE Is pt being admited?: No Does the pt Need Aspirin: No Condition: Stable Instructions: Abdominal Pain (ED), Ovarian Cyst (ED), Acute Nausea and Vomiting (ED) Additional Instructions: Please [employer] doctor at [facility] Take naproxen as instructed Do not take Phenergan while driving or operating heavy machinery as this medication causes drowsiness Prescriptions: Naproxen [Naprosyn] 500 mg PO BID PRN #12 tablet PRN Reason: Pain Promethazine [Phenergan TAB] 25 mg PO Q8HR PRN #15 tab PRN Reason: Nausea Referrals: [facility] [Provider Group] - 03/16/17 Forms: Accompanied Note, Work/School Release Form(ED)
[2017-03-15 07:39] VITALS: BP 154/98
--- NOTE | 2017-03-15 07:43 | Cat Scan Report ---
CT SCAN OF THE ABDOMEN AND PELVIS WITH CONTRAST: HISTORY: Abdominal pain and nausea. COMPARISON: 03/16/16. TECHNIQUE: Helical CT in 1.25mm intervals following IV contrast. Sagittal and coronal reconstructions. FINDINGS: The liver is normal in size and is without focal defect. No gallstones or biliary dilatation are noted. The spleen and pancreas demonstrate a normal size and attenuation with no evidence of abnormal mass. The kidneys are normal in size and position with no evidence of hydronephrosis or mass. The adrenal glands are normal. There is no intestinal obstruction or ascites. Normal appendix. The abdominal aorta is normal. The uterus and right ovary are unremarkable. A 1.9 x 2.4 cm cyst is noted in the left ovary. Bilateral tubal ligation clips are also noted. There is no evidence of peritoneal air or fluid. There is no evidence of any abnormal masses or fluid collections within the pelvis. No adenopathy is identified. The bladder is normal. IMPRESSION: No acute abdominal process appreciated. 2.4 x 1.9 cm left ovarian cyst.
== END 2017-03-15 09:04 | disposition home or self-care (01) ==
LOC: ED 02:00
DX: N83.202 Unspecified ovarian cyst, left side (principal); G43.909 Migraine, unspecified, not intractable, without status migrainosus; J45.909 Unspecified asthma, uncomplicated; F17.200 Nicotine dependence, unspecified, uncomplicated
CPT/HCPCS: 36415; 74177; 80053; 81001; 81025; 83690; 85025; 96361; 96374; 96375; 99284; J2270; J2405; J7030; Q9967

== ENCOUNTER 2017-03-15 23:26 | Emergency (ER) | payer MEDICAID ==
--- NOTE | 2017-03-16 08:00 | Emergency Department Report ---
ED General Adult HPI - General Chief complaint: Abdominal Pain Stated complaint: ABD/LEFT SIDE PAIN/SWOLLEN Time Seen by Provider: 03/16/17 06:59 Source: patient Mode of arrival: Ambulatory Limitations: No Limitations - History of Present Illness Initial comments: Patient complains of intermittent left-sided lower abdominal pain which has been ascribed to an ovarian cyst on the basis of the CT examination last night. The CT did not show any free fluid. The patient has had a left ovarian cystectomy in the past. She's had pain intermittently for 5 days. She has never had a torsion. The cyst is small. She's had multiple ultrasounds in the past. She's been in touch with Dr. Hill who has given her appointment for Sunday. She returned to the emergency department because she states the Anaprox "did not make the swelling go down". She would like something stronger for pain. She is not having any acute pain at this time. -: days(s) Location: pelvis, left Radiation: non-radiation Severity scale (0 -10): 6 Quality: aching Consistency: intermittent Worsens with: none Associated Symptoms: denies other symptoms - Related Data Previous Rx's Medication Instructions Recorded Last Taken Type Nitrofurantoin [place]/M-Cryst 100 mg PO Q12HR #14 capsule 07/26/16 Unknown Rx [Macrobid CAP] Docusate Sodium [Colace] 100 mg PO BID PRN #20 capsule 10/14/16 Unknown Rx Ibuprofen [Motrin] 800 mg PO Q8HR PRN #30 tablet 10/14/16 Unknown Rx ALBUTEROL Inhaler [Proair] 2 puff IH QID PRN #1 inhalation 02/03/17 Unknown Rx Azithromycin [Zithromax Z-JESSI] 0 mg PO DAILY #6 tab 02/03/17 Unknown Rx Benzonatate [Tessalon Perles] 100 mg PO Q8HR #30 capsule 02/03/17 Unknown Rx Promethazine /Codeine 5 ml PO Q6H PRN #118 ml 02/04/17 Unknown Rx [Phenergan/Codeine 6.25-10 mg/5 ml] predniSONE [Deltasone] 20 mg PO QDAY #5 tab 02/04/17 Unknown Rx Naproxen [Naprosyn] 500 mg PO BID PRN #12 tablet 03/15/17 Unknown Rx Promethazine [Phenergan TAB] 25 mg PO Q8HR PRN #15 tab 03/15/17 Unknown Rx HYDROcodone/APAP 5-325 [[place] 1 each PO Q6HR PRN #14 tablet 03/16/17 Unknown Rx 5/325] Allergies Allergy/AdvReac Type Severity Reaction Status Date / Time banana Allergy throat Verified 05/23/16 11:23 itches ED Review of Systems ROS: Stated complaint: ABD/LEFT SIDE PAIN/SWOLLEN Other details as noted in HPI Constitutional: denies: chills, fever Eyes: denies: eye pain, eye discharge, vision change ENT: denies: ear pain, throat pain Respiratory: denies: cough, shortness of breath, wheezing Cardiovascular: denies: chest pain, palpitations Endocrine: no symptoms reported Gastrointestinal: as per HPI, abdominal pain. denies: nausea, diarrhea Genitourinary: as per HPI. denies: urgency, dysuria, discharge Musculoskeletal: denies: back pain, joint swelling, arthralgia Skin: denies: rash, lesions Neurological: denies: headache, weakness, paresthesias Psychiatric: denies: anxiety, depression Hematological/Lymphatic: denies: easy bleeding, easy bruising ED Past Medical Hx - Past Medical History Previous Medical History?: Yes Hx Arthritis: Yes Hx Headaches / Migraines: Yes Hx Asthma: Yes Additional medical history: Ovarian Cyst removed in 2015 - Surgical History Past Surgical History?: Yes Additional Surgical History: TUBAL LIGATION 2008. Ovarian Cyst Removal 05/31/2016 - Social History Smoking Status: Current Some Day Smoker Substance Use Type: Prescribed - Medications Home Medications: Home Medications Medication Instructions Recorded Confirmed Last Taken Type Nitrofurantoin [place]/M-Cryst 100 mg PO Q12HR #14 capsule 07/26/16 Unknown Rx [Macrobid CAP] Docusate Sodium [Colace] 100 mg PO BID PRN #20 capsule 10/14/16 Unknown Rx Ibuprofen [Motrin] 800 mg PO Q8HR PRN #30 tablet 10/14/16 Unknown Rx ALBUTEROL Inhaler [Proair] 2 puff IH QID PRN #1 inhalation 02/03/17 Unknown Rx Azithromycin [Zithromax Z-JESSI] 0 mg PO DAILY #6 tab 02/03/17 Unknown Rx Benzonatate [Tessalon Perles] 100 mg PO Q8HR #30 capsule 02/03/17 Unknown Rx Promethazine /Codeine 5 ml PO Q6H PRN #118 ml 02/04/17 Unknown Rx [Phenergan/Codeine 6.25-10 mg/5 ml] predniSONE [Deltasone] 20 mg PO QDAY #5 tab 02/04/17 Unknown Rx Naproxen [Naprosyn] 500 mg PO BID PRN #12 tablet 03/15/17 Unknown Rx Promethazine [Phenergan TAB] 25 mg PO Q8HR PRN #15 tab 03/15/17 Unknown Rx HYDROcodone/APAP 5-325 [Trion 1 each PO Q6HR PRN #14 tablet 03/16/17 Unknown Rx 5/325] ED Physical Exam - General Limitations: No Limitations General appearance: alert, in no apparent distress - Head Head exam: Present: atraumatic, normocephalic - Eye Eye exam: Present: normal appearance. Absent: scleral icterus - ENT ENT exam: Present: mucous membranes moist. Absent: normal exam - Neck Neck exam: Present: normal inspection - Respiratory Respiratory exam: Present: normal lung sounds bilaterally. Absent: respiratory distress - Cardiovascular Cardiovascular Exam: Present: regular rate, normal rhythm. Absent: systolic murmur, diastolic murmur, rubs, gallop - GI/Abdominal GI/Abdominal exam: Present: soft, normal bowel sounds. Absent: distended, tenderness, guarding, rebound, rigid, organomegaly, mass, bruit, pulsatile mass , hernia - Extremities Exam Extremities exam: Present: normal inspection - Back Exam Back exam: Present: normal inspection - Neurological Exam Neurological exam: Present: alert, oriented X3, CN II-XII intact. Absent: motor sensory deficit - Psychiatric Psychiatric exam: Present: normal affect, normal mood - Skin Skin exam: Present: warm, dry, intact, normal color. Absent: rash ED Course Vital Signs 03/15/17 03/16/17 03/16/17 23:39 04:30 06:29 Temperature 98 F 98 F Pulse Rate 77 62 63 Respiratory 20 12 16 Rate Blood Pressure 155/104 144/98 Blood Pressure 155/104 135/92 [Right] O2 Sat by Pulse 100 100 100 Oximetry 03/16/17 06:30 Temperature Pulse Rate Respiratory 16 Rate Blood Pressure Blood Pressure [Right] O2 Sat by Pulse 100 Oximetry ED Medical Decision Making - Radiology Data Radiology results: report reviewed Critical care attestation.: If time is entered above; I have spent that time in minutes in the direct care of this critically ill patient, excluding procedure time. ED Disposition Clinical Impression: Pelvic pain, Ovarian cyst Disposition: TO HOME OR SELFCARE Is pt being admited?: No Does the pt Need Aspirin: No Condition: Stable Instructions: Abdominal Pain (ED), Ovarian Cyst (ED) Additional Instructions: Return any acute change or problem. Follow-up with your campaign marketing manager as planned Sunday. Prescriptions: HYDROcodone/APAP 5-325 [Trion 5/325] 1 each PO Q6HR PRN #14 tablet PRN Reason: Pain Referrals: PRIMARY CARE, [Primary Care Provider] - 3-5 Days XIOMARA HILL MD [Staff Physician] - 2-3 Days Time of Disposition: 07:59
[2017-03-16] MEDS ORDERED: NORCO 5/325 ONE (08:14)
[2017-03-16] MEDS ORDERED: NORCO 5/325 PO ONE (08:17)
[2017-03-16 08:18] VITALS: BP 130/86
== END 2017-03-16 08:18 | disposition home or self-care (01) ==
LOC: ED 23:26
DX: N83.209 Unspecified ovarian cyst, unspecified side (principal)
CPT/HCPCS: 99282

== ENCOUNTER 2017-05-14 23:32 | Emergency (ER) | payer MEDICAID ==
[2017-05-15 00:35] LABS: Basophils % (Auto) 0.5 % (0.0-1.8); Eosinophils % (Auto) 1.6 % (0.0-4.3); Hematocrit 38.6 % (30.3-42.9); Hemoglobin 12.6 gm/dl (10.1-14.3); Mean Corpuscular HGB Conc 33 % (30-34); Mean Corpuscular Hemoglobin 28 pg (28-32); Mean Corpuscular Volume 85 fl (79-97); Platelet Count 311 K/mm3 (140-440); Red Blood Count 4.57 M/mm3 (3.65-5.03); Red Cell Distribution Width 14.4 % (13.2-15.2); White Blood Count 8.1 K/mm3 (4.5-11.0)
[2017-05-15 00:59] LABS: Alanine Aminotransferase 8 units/L (7-56); Albumin 4.3 g/dL (3.9-5); Albumin/Globulin Ratio 1.4 %; Alkaline Phosphatase 56 units/L (35-129); Anion Gap 18 mmol/L; BUN/Creatinine Ratio 17.14; Blood Urea Nitrogen 12 mg/dL (7-17); Calcium 9.3 mg/dL (8.4-10.2); Carbon Dioxide 24 mmol/L (22-30); Chloride 103.4 mmol/L (98-107); Glucose 118 mg/dL (65-100); Lipase 36 units/L (13-60); Potassium 4.2 mmol/L (3.6-5.0); Sodium 141 mmol/L (137-145); Total Protein 7.3 g/dL (6.3-8.2)
[2017-05-15 04:26] LABS: Bilirubin,Urine NEG (Negative); Blood,Urine NEG (Negative); Ketones,Urine TR mg/dL (Negative); Leukocyte Esterase,Urine NEG (Negative); Mucus,Urine 3+ /HPF; Nitrite,Urine NEG (Negative); Protein,Urine <15 mg/dL mg/dL (Negative)
[2017-05-15] MEDS ORDERED: MORPHINE IM ONE (07:08)
[2017-05-15] MEDS ORDERED: ZOFRAN IM ONE (07:08)
--- NOTE | 2017-05-15 07:13 | Emergency Department Report ---
HPI - General Chief Complaint: Abdominal Pain Time Seen by Provider: 05/15/17 07:00 - HPI HPI: Room 37 The patient is a 32-year-old female presenting with a chief complaint of left pelvic pain. The patient states for the past 4 days she has had pain in the left pelvis that was initially intermittent but now constant. The patient states the pain feels consistent with her. His diagnosis of left ovarian cyst. The patient was seen in this ED twice in March for the same. The patient states she is scheduled to have surgery for her left ovarian cyst 05/23/[address] Lakhani. The patient states she did not refill to her [employer] regarding the pain for the past 4 days. Patient admits to nausea but denies vomiting. Patient denies fever or dysuria. The patient currently gives her pain a score of 8/10 Location: Left Pelvis Duration: 4 days Quality: Pain Severity:8/10 Modifying factors: [see above] Context: [see above] Mode of transportation: [not driving] ED Past Medical Hx - Past Medical History Hx Arthritis: Yes Hx Headaches / Migraines: Yes Hx Asthma: Yes Additional medical history: Ovarian Cyst removed in 2015 - Surgical History Additional Surgical History: TUBAL LIGATION 2008. Ovarian Cyst Removal 05/31/2016 - Family History Family history: no significant - Social History Smoking Status: Current Some Day Smoker Substance Use Type: None (denies illicit drug use ) - Medications Home Medications: Home Medications Medication Instructions Recorded Confirmed Last Taken Type Nitrofurantoin Hale/M-Cryst 100 mg PO Q12HR #14 capsule 07/26/16 Unknown Rx [Macrobid CAP] Docusate Sodium [Colace] 100 mg PO BID PRN #20 capsule 10/14/16 Unknown Rx Ibuprofen [Motrin] 800 mg PO Q8HR PRN #30 tablet 10/14/16 Unknown Rx ALBUTEROL Inhaler [Proair] 2 puff IH QID PRN #1 inhalation 02/03/17 Unknown Rx Azithromycin [Zithromax Z-JESSI] 0 mg PO DAILY #6 tab 02/03/17 Unknown Rx Benzonatate [Tessalon Perles] 100 mg PO Q8HR #30 capsule 02/03/17 Unknown Rx Promethazine /Codeine 5 ml PO Q6H PRN #118 ml 02/04/17 Unknown Rx [Phenergan/Codeine 6.25-10 mg/5 ml] predniSONE [Deltasone] 20 mg PO QDAY #5 tab 02/04/17 Unknown Rx Naproxen [Naprosyn] 500 mg PO BID PRN #12 tablet 03/15/17 Unknown Rx Promethazine [Phenergan TAB] 25 mg PO Q8HR PRN #15 tab 03/15/17 Unknown Rx HYDROcodone/APAP 5-325 [[place] 1 each PO Q6HR PRN #14 tablet 03/16/17 Unknown Rx 5/325] Ibuprofen [Motrin 800 MG tab] 800 mg PO Q8HR PRN #20 tablet 05/15/17 Unknown Rx ED Review of Systems ROS: Stated complaint: ABD/BACK PAIN Other details as noted in HPI Comment: All other systems reviewed and negative Constitutional: denies: chills, fever Eyes: denies: eye pain, eye discharge, vision change ENT: denies: ear pain, throat pain Respiratory: denies: cough, shortness of breath, wheezing Cardiovascular: denies: chest pain, palpitations Endocrine: no symptoms reported Gastrointestinal: abdominal pain, nausea. denies: vomiting Genitourinary: denies: urgency, dysuria, discharge Musculoskeletal: denies: back pain, joint swelling, arthralgia Skin: denies: rash, lesions Neurological: denies: headache, weakness, paresthesias Psychiatric: denies: anxiety, depression Hematological/Lymphatic: denies: easy bleeding, easy bruising Physical Exam - Physical Exam Vital Signs: Vital Signs 05/14/17 05/15/17 23:46 03:17 Temperature 98.5 F Pulse Rate 85 64 Respiratory 18 16 Rate Blood Pressure 143/93 Blood Pressure 126/78 [Left] O2 Sat by Pulse 100 97 Oximetry Physical Exam: GENERAL: The patient is well-developed well-nourished female lying on stretcher sleeping on appearing to be in acute distress. [] HEENT: Normocephalic. Atraumatic. Extraocular motions are intact. Patient has moist mucous membranes. NECK: Supple. Trachea midline CHEST/LUNGS: Clear to auscultation. There is no respiratory distress noted. HEART/CARDIOVASCULAR: Regular. There is no tachycardia. There is no gallop rub or murmur. ABDOMEN: Abdomen is soft, nontender. Patient has normal bowel sounds. There is no abdominal distention. SKIN: There is no rash. There is no edema. There is no diaphoresis. NEURO: The patient is awake, alert, and oriented. The patient is cooperative. The patient has normal speech MUSCULOSKELETAL: There is no CVA tenderness. There is no evidence of acute injury. ED Course Vital Signs 05/14/17 05/15/17 23:46 03:17 Temperature 98.5 F Pulse Rate 85 64 Respiratory 18 16 Rate Blood Pressure 143/93 Blood Pressure 126/78 [Left] O2 Sat by Pulse 100 97 Oximetry ED Medical Decision Making - Lab Data Result diagrams: 05/15/17 00:08 05/15/17 00:08 Laboratory Tests 05/15/17 05/15/17 05/15/17 00:08 00:08 03:48 WBC 8.1 RBC 4.57 Hgb 12.6 Hct 38.6 MCV 85 MCH 28 MCHC 33 RDW 14.4 Plt Count 311 Lymph % (Auto) 30.9 Hale % (Auto) 5.3 Eos % (Auto) 1.6 Baso % (Auto) 0.5 Lymph # 2.5 Hale # 0.4 Eos # 0.1 Baso # 0.0 Seg Neutrophils % 61.7 Seg Neutrophils # 5.0 Sodium 141 Potassium 4.2 Chloride 103.4 Carbon Dioxide 24 Anion Gap 18 BUN 12 Creatinine 0.7 Estimated GFR > 60 BUN/Creatinine Ratio 17.14 Glucose 118 H Calcium 9.3 Total Bilirubin 0.30 AST 11 ALT 8 Alkaline Phosphatase 56 Total Protein 7.3 Albumin 4.3 Albumin/Globulin Ratio 1.4 Lipase 36 Urine Color Yellow Urine Turbidity Clear Urine pH 7.0 Ur Specific Kamrar 1.026 Urine Protein <15 mg/dl Urine Glucose (UA) Neg Urine Ketones Tr Urine Blood Neg Urine Nitrite Neg Urine Bilirubin Neg Urine Urobilinogen 2.0 Ur Leukocyte Esterase Neg Urine WBC (Auto) 1.0 Urine RBC (Auto) 5.0 U Epithel Cells (Auto) 2.0 Amorphous Crystals 1+ Urine Mucus 3+ - Radiology Data Radiology results: report reviewed (pelvic Doppler ultrasound), image reviewed ( pelvic Doppler ultrasound) pelvic Doppler ultrasound (read by radiologist)-unremarkable transabdominal and transvaginal pelvic ultrasound. The left ovarian cyst has resolved since CT dated 03/15/2017 - Differential Diagnosis ovarian cyst, ovarian torsion, UTI Critical care attestation.: If time is entered above; I have spent that time in minutes in the direct care of this critically ill patient, excluding procedure time. ED Disposition Clinical Impression: Pelvic pain Disposition: - TO HOME OR SELFCARE Is pt being admited?: No Does the pt Need Aspirin: No Condition: Stable Instructions: Abdominal Pain (ED) Additional Instructions: Return to the emergency department immediately should you develop worsening symptoms, fever, inability to tolerate food or liquid or any other concerns. Prescriptions: Ibuprofen [Motrin 800 MG tab] 800 mg PO Q8HR PRN #20 tablet PRN Reason: Pain Referrals: PRIMARY CARE, [Primary Care Provider] - 3-5 Days Time of Disposition: 08:23
--- NOTE | 2017-05-15 07:59 | Ultrasound Report ---
ULTRASOUND PELVIS DUPLEX DOPPLER COMPLETE ULTRASOUND TRANSVAGINAL HISTORY: Left pelvic pain, history of ovarian cysts.. TECHNIQUE: Transabdominal and transvaginal ultrasound with color and spectral doppler interrogation. Longitudinal and transverse real-time images of the pelvis demonstrate that the uterus and ovaries are present and in a normal location. They are of normal echogenicity, contour and size. The uterus measures 8.8 x 4.8 x 5.1 cm. The endometrial stripe measures 12 mm. No pathologic changes in the adjacent tissues are noted. IMPRESSION: Unremarkable transabdominal and transvaginal pelvic ultrasounds. The left ovarian cyst has resolved since the CT dated 03/15/17.
[2017-05-15 08:53] LABS: Bilirubin,Urine NEG (Negative); Blood,Urine NEG (Negative); Ketones,Urine TR mg/dL (Negative); Leukocyte Esterase,Urine NEG (Negative); Mucus,Urine 3+ /HPF; Nitrite,Urine NEG (Negative)
[2017-05-15 09:29] VITALS: BP 135/81
== END 2017-05-15 08:41 | disposition home or self-care (01) ==
LOC: ED 23:32
DX: R10.2 Pelvic and perineal pain (principal); M19.90 Unspecified osteoarthritis, unspecified site; G43.909 Migraine, unspecified, not intractable, without status migrainosus; J45.909 Unspecified asthma, uncomplicated; Z72.0 Tobacco use
CPT/HCPCS: 36415; 76830; 80053; 81001; 81025; 83690; 85025; 93975; 96372; 99284; J2270; J2405

== ENCOUNTER 2017-05-23 06:34 | Day surgery (SDC) | payer MEDICAID ==
[~2017-05-23 06:34] MED LIST: NACL 0.9% 1000 ML 1,000 ML IV SCH; PEPCID PO NR; VERSED IV NR
--- NOTE | 2017-05-23 07:05 | Anesthesia Day of Surgery ---
Anesthesia Day of Surgery - Day of Surgery Patient Examined: Yes Patient H&P Reviewed: Yes Patient is NPO: Yes
--- NOTE | 2017-05-23 07:05 | Anesthesia Consultation ---
Anesthesia Consult and Med Hx - Airway Anesthetic Teeth Evaluation: Good ROM Head & Neck: Adequate Mental/Hyoid Distance: Adequate Mallampati Class: Class II Intubation Access Assessment: Probably Good - Pulmonary Exam CTA: Yes - Cardiac Exam Cardiac Exam: RRR - Pre-Operative Health Status ASA Pre-Surgery Classification: ASA2 Proposed Anesthetic Plan: General - Pulmonary Hx Smoking: Yes (1/2 ppd x 10 years) Hx Asthma: Yes (Seasonal flare ups. Uses inhaler.) - Central Nervous System Hx Psychiatric Problems: No - Hematic Hx Anemia: Yes (past hx) - Other Systems Hx Alcohol Use: Yes (occas) Hx Cancer: No - Additional Comments Anesthesia Medical History Comments: No previous anesthesia complications.
[2017-05-23] MEDS ORDERED: NACL BACTERIOSTATIC INFILTRATI ONE (07:13)
--- NOTE | 2017-05-23 07:20 | Short Stay Summary ---
Short Stay Documentation Date of service: 05/23/17 Narrative H&P: 32y/o ARTI presents with a history of chronic pelvic pain for years. She recently had an ultrasound with findings of a small ovarian cyst. She reports worsening of left sided pain. The patient has not been controlled with medical management. She requires the use of pain meds in order to perform daily activities. She elects for surgical management. - History Principal diagnosis: chronic pelvic pain Past Medical History: other (asthma) Past Surgical History: Other (tubal ligation) Social history: , smoking - Allergies and Medications Current Medications: Allergies banana Allergy (Verified 05/21/17 17:10) throat itches Home Medications Medication Instructions Recorded Confirmed Last Taken Type Ibuprofen [Motrin] 800 mg PO Q8HR PRN #30 tablet 10/14/16 05/21/17 Unknown Rx ALBUTEROL Inhaler [Proair] 2 puff IH QID PRN #1 inhalation 02/03/17 05/21/17 Unknown Rx Active Medications Famotidine (Pepcid) 20 mg PO PREOP NR Stop: 05/23/17 23:45 Sodium Chloride (Nacl 0.9% 1000 Ml) 1,000 mls @ 100 mls/hr IV DIRECT YUDY Midazolam HCl (Versed) 2 mg IV PREOP NR Stop: 05/23/17 23:59 - Physical exam General appearance: no acute distress Integumentary: no rash HEENT: Atraumatic Lungs: Clear to auscultation Breasts: deferred Heart: Regular rate Gastrointestinal: normal - Brief post op/procedure progress note Date of procedure: 05/23/17 Pre-op diagnosis: chronic pelvic pain Post-op diagnosis: same Procedure: Laparoscopy Left salpingo-oophorectomy Anesthesia: GETA Surgeon: XIOMARA MORTON Estimated blood loss: 50-100ml Pathology: list (left tube and ovary) Specimen disposition: to lab Condition: stable - Hospital course Hospital course: The patient was admitted the day of surgery and underwent a laparoscopy and left salpingo-oophorectomy. Please see operative note for details surgery. Postoperative course was uneventful. - Disposition Condition at discharge: Good Disposition: [id number] TO HOME OR SELFCARE Short Stay Discharge Plan Activity: other (pelvic rest for 1 week) Diet: regular Additional Instructions: Patient may follow up with Dr. Lakhani in 2-4 weeks Prescriptions: Ibuprofen [Motrin] 800 mg PO Q8HR PRN #60 tablet PRN Reason: Pain Oxycodone HCl/Acetaminophen [Percocet 10/325 mg] 1 each PO Q6HR PRN #45 tablet PRN Reason: Pain
[2017-05-23] MEDS ORDERED: DIPRIVAN 10 MG/ML IV ONE (07:26)
[2017-05-23] MEDS ORDERED: DILAUDID ONE (07:26)
[2017-05-23] MEDS ORDERED: MARCAINE 0.5% 30 ML INFILTRATI ONE (08:09)
[2017-05-23] MEDS ORDERED: ZOFRAN IV PRN (08:30)
[2017-05-23] MEDS ORDERED: NACL 0.9% IR ONE (08:44)
[2017-05-23] MEDS ORDERED: MARCAINE 0.5% INFILTRATI ONE ×2 (08:44)
[2017-05-23] MEDS ORDERED: ZEMURON IV ONE (08:52)
[2017-05-23] MEDS ORDERED: ZOFRAN ONE (08:52)
[2017-05-23] MEDS ORDERED: XYLOCAINE MPF 2% ONE (08:52)
[2017-05-23] MEDS ORDERED: DECADRON ONE (08:52)
[2017-05-23] MEDS ORDERED: ROBINUL ONE (09:04)
--- NOTE | 2017-05-23 09:48 | Operative Report ---
Operative Report Operative Report: Date of surgery: 05/23/2017 Preoperative diagnosis: Chronic pelvic pain Postoperative diagnosis: Same as above; left ovarian cyst Procedure: Laparoscopy; left salpingo-oophorectomy Surgeon: Nancy Lakhani M.D. Anesthesia: General endotracheal anesthesia Estimated blood loss: Minimal Findings: Small left ovarian cyst; normal uterus and tubes; normal right ovary Pathology: Left tube and ovary Indication: 32-year-old black female with a history of chronic pelvic pain. The patient reports many years of worsening left-sided pelvic pain. She has had multiple incidence of ovarian cysts to develop on her right ovary and has elected for surgical management. Procedure: The patient was taken to the operating room and given general endotracheal anesthesia without complication. The patient is prepped and draped in a normal sterile fashion. A bivalve speculum was placed in the patient's vagina and a single-tooth tenaculum was placed on the anterior lip of the cervix .A uterine acorn manipulato rwas placed, and the bivalve speculum was then removed. Attention was then turned to the patient's abdomen where a 5 mm infraumbilical skin incision was then made. A Veress needle was placed and peritoneal entry was verified water-filled syringe. Insufflation of the peritoneal cavity was performed with CO2 gas. A 5 mm trocar was placed and the laparoscope was then inserted. The patient was then placed in Trendelenburg. A 5 mm suprapubic skin incision was then made. Under direct visualization a 5 mm trocar was then placed. General survey of the patient's abdomen revealed a small left ovarian cyst normal tubes bilaterally, normal uterus and normal right ovary. A left lateral 10 mm skin incision was then made. Under direct visualization a 10 mm trocar was then placed. The left fallopian tube and ovary were grasped with a grasper. The LigaSure device was inserted through the 10 mm trocar. LigaSure device was used to coagulate and transect the infundibulopelvic ligament. The tube and ovary on the left were transected from the uterus. An Endo Catch bag was then placed through the 10 mm trocar in the left tube and ovary were removed through the Endo Catch bag. There was no evidence of any active bleeding at the conclusion of the case. Marisol was applied to the surgical sites. The 10 mm trocar was removed. The fascia of the 10 mm incision was closed with a Sukhdev Mena device. The pneumoperitoneum was then released. The 5 mm trocars and laparoscope were then removed. The skin incisions were then closed with 4-0 Monocryl. The incisions were injected with quarter percent Marcaine. Dressings were applied to the incision. The vaginal instruments were then removed atraumatically. Then successfully extubated and taken to the recovery room. All sponge laps and needle counts were correct 2.
[2017-05-23] MEDS: DILAUDID IV PRN ×2 (09:50→10:00)
--- NOTE | 2017-05-23 10:28 | Post Anesthesia Evaluation ---
- Post Anesthesia Evaluation Patient Participated: Yes Airway Patent: Yes Stable Respiratory Function: Yes Nausea/Vomiting: No Temp > 96.8F: Yes Pain Manageable: Yes Adequeate Hydration: Yes Anesthesia Complications: No Block Receding Appropriately: Not Applicable Patient on Ventilator: No
[2017-05-23] MEDS ORDERED: PERCOCET 5/325 PO ONE (11:00)
[2017-05-23 11:45] VITALS: BP 135/95
== END 2017-05-23 11:33 | disposition home or self-care (01) ==
LOC: OR 06:34
PROVIDERS: ATTEND Obstetrics & Gynecology
DX: N83.02 Follicular cyst of left ovary (principal); N83.12 Corpus luteum cyst of left ovary; F17.210 Nicotine dependence, cigarettes, uncomplicated; D64.9 Anemia, unspecified; Z91.018 Allergy to other foods; Z98.51 Tubal ligation status; Z72.89 Other problems related to lifestyle
CPT/HCPCS: 58661; 81025; 88305; J1100; J1170; J2250; J2405; J2704; J7030

== ENCOUNTER 2017-06-06 16:44 | Emergency (ER) | payer MEDICAID ==
[2017-06-06 18:18] LABS: Alanine Aminotransferase 16 units/L (7-56); Albumin 4.6 g/dL (3.9-5); Albumin/Globulin Ratio 1.6 %; Alkaline Phosphatase 58 units/L (35-129); Anion Gap 18 mmol/L; BUN/Creatinine Ratio 16.66; Blood Urea Nitrogen 10 mg/dL (7-17); Calcium 9.5 mg/dL (8.4-10.2); Carbon Dioxide 24 mmol/L (22-30); Chloride 104.9 mmol/L (98-107); Glucose 83 mg/dL (65-100); Lipase 25 units/L (13-60); Potassium 4.3 mmol/L (3.6-5.0); Sodium 143 mmol/L (137-145); Total Protein 7.4 g/dL (6.3-8.2)
[2017-06-06 18:28] LABS: Basophils % (Auto) 0.7 % (0.0-1.8); Eosinophils % (Auto) 2.1 % (0.0-4.3); Hematocrit 38.9 % (30.3-42.9); Hemoglobin 12.6 gm/dl (10.1-14.3); Mean Corpuscular HGB Conc 33 % (30-34); Mean Corpuscular Hemoglobin 27 pg (28-32); Mean Corpuscular Volume 83 fl (79-97); Platelet Count 331 K/mm3 (140-440); Red Blood Count 4.69 M/mm3 (3.65-5.03); Red Cell Distribution Width 14.1 % (13.2-15.2); White Blood Count 11.4 K/mm3 (4.5-11.0)
[2017-06-06] MEDS ORDERED: PROVENTIL IH ONE (23:47)
[2017-06-06] MEDS ORDERED: ROBITUSSIN PO ONE (23:47)
--- NOTE | 2017-06-06 23:51 | Emergency Department Report ---
HPI - General Chief Complaint: Abdominal Pain Time Seen by Provider: 06/06/17 23:38 - HPI HPI: 22-year-old -[place] female who had oophorectomy on may, is here today with cough, congestion, wheezing. patient with h/o asthma. when she coughs, she hurt in her abdominal area where her surgical scar is on the left side. patient also c/o diarrhea, x 3 today. no fever. ED Past Medical Hx - Past Medical History Hx Arthritis: Yes (R HAND) Hx Headaches / Migraines: Yes Hx Asthma: Yes (Seasonal flare ups. Uses inhaler.) Additional medical history: Ovarian Cyst removed in 2015 - Surgical History Additional Surgical History: TUBAL LIGATION 2008. Ovarian Cyst Removal 05/31/2016 - Social History Smoking Status: Current Every Day Smoker - Medications Home Medications: Home Medications Medication Instructions Recorded Confirmed Last Taken Type Ibuprofen [Motrin] 800 mg PO Q8HR PRN #30 tablet 10/14/16 05/23/17 05/21/17 Rx ALBUTEROL Inhaler [Proair] 2 puff IH QID PRN #1 inhalation 02/03/17 05/23/17 Unknown Rx Ibuprofen [Motrin] 800 mg PO Q8HR PRN #60 tablet 05/23/17 Unknown Rx Oxycodone HCl/Acetaminophen 1 each PO Q6HR PRN #45 tablet 05/23/17 Unknown Rx [Percocet 10/325 mg] Azithromycin [Zithromax Z-JESSI] 250 mg PO DAILY #6 tablet 06/07/17 Unknown Rx Guaifenesin/Codeine Phosphate 5 ml PO BID PRN #110 ml 06/07/17 Unknown Rx [Guaifenesin-Codeine Liquid] ED Review of Systems ROS: Stated complaint: ABD PAIN/CRAMPS/DIARRHEA Other details as noted in HPI Comment: All other systems reviewed and negative Respiratory: cough Gastrointestinal: abdominal pain Physical Exam - Physical Exam Vital Signs: Vital Signs 06/06/17 17:07 Temperature 98.4 F Pulse Rate 51 L Respiratory 18 Rate Blood Pressure 137/97 O2 Sat by Pulse 100 Oximetry Physical Exam: GENERAL: The patient is well-developed well-nourished [] HEENT: Normocephalic. Atraumatic. Extraocular motions are intact. Patient has moist mucous membranes. NECK: Supple. No meningitic signs are noted. There is no adenopathy noted. CHEST/LUNGS: Clear to auscultation. There is no respiratory distress noted. HEART/CARDIOVASCULAR: Regular. There is no tachycardia. There is no gallop rub or murmur. ABDOMEN: Abdomen is soft, nontender. Patient has normal bowel sounds. There is no abdominal distention. SKIN: There is no rash. There is no edema. There is no diaphoresis. NEURO: The patient is awake, alert, and oriented. The patient is cooperative. The patient has no focal neurologic deficits. The patient has normal speech. Cranial nerves II through XII grossly intact, no drift. Moves all extremities well MUSCULOSKELETAL: There is no evidence of acute injury. ED Course Vital Signs 06/06/17 17:07 Temperature 98.4 F Pulse Rate 51 L Respiratory 18 Rate Blood Pressure 137/97 O2 Sat by Pulse 100 Oximetry ED Medical Decision Making - Lab Data Result diagrams: 06/06/17 17:41 06/06/17 17:41 Critical care attestation.: If time is entered above; I have spent that time in minutes in the direct care of this critically ill patient, excluding procedure time. ED Disposition Clinical Impression: Post-operative pain Acute bronchitis Qualifiers: Bronchitis organism: unspecified organism Qualified Code(s): J20.9 - Acute bronchitis, unspecified Disposition: DC-01 TO HOME OR SELFCARE Is pt being admited?: No Does the pt Need Aspirin: No Condition: Stable Instructions: Acute Bronchitis (ED), Abdominal Pain (ED) Prescriptions: Azithromycin [Zithromax Z-JESSI] 250 mg PO DAILY #6 tablet Guaifenesin/Codeine Phosphate [Guaifenesin-Codeine Liquid] 5 ml PO BID PRN #110 ml PRN Reason: Cough Referrals: PRIMARY CARE,MD [Primary Care Provider] - 3-5 Days
[2017-06-07 00:21] LABS: Bilirubin,Urine NEG (Negative); Blood,Urine NEG (Negative); Ketones,Urine NEG (Negative); Leukocyte Esterase,Urine NEG (Negative); Nitrite,Urine NEG (Negative); Protein,Urine <15 mg/dL mg/dL (Negative); Urobilinogen,Urine < 2.0 mg/dL (<2.0)
[2017-06-07 03:02] VITALS: BP 101/81
[2017-06-07] MEDS ORDERED: NORCO 5/325 PO ONE (03:52)
--- NOTE | 2017-06-07 09:06 | XRay Report ---
PORTABLE CHEST: Cough. An AP portable view of the chest demonstrates a normal cardiac contour considering the limits of this technique. The lungs are clear with no evidence of infiltrate, fluid or failure. IMPRESSION: Normal portable chest.
== END 2017-06-07 04:05 | disposition home or self-care (01) ==
LOC: ED 16:44
DX: R06.2 Wheezing (principal); R05 Cough; R09.81 Nasal congestion; J45.909 Unspecified asthma, uncomplicated; F17.200 Nicotine dependence, unspecified, uncomplicated
CPT/HCPCS: 36415; 71010; 80053; 81001; 81025; 83690; 84703; 85025; 94640

== ENCOUNTER 2017-08-15 18:05 | Emergency (ER) | payer MEDICAID ==
[2017-08-15 20:24] LABS: Basophils % (Auto) 0.5 % (0.0-1.8); Eosinophils % (Auto) 1.7 % (0.0-4.3); Hematocrit 37.7 % (30.3-42.9); Hemoglobin 12.2 gm/dl (10.1-14.3); Mean Corpuscular HGB Conc 33 % (30-34); Mean Corpuscular Hemoglobin 28 pg (28-32); Mean Corpuscular Volume 85 fl (79-97); Platelet Count 303 K/mm3 (140-440); Red Blood Count 4.45 M/mm3 (3.65-5.03); Red Cell Distribution Width 15.1 % (13.2-15.2); White Blood Count 8.4 K/mm3 (4.5-11.0)
[2017-08-15 20:44] LABS: Alanine Aminotransferase 12 units/L (7-56); Albumin 4.5 g/dL (3.9-5); Albumin/Globulin Ratio 1.5 %; Alkaline Phosphatase 57 units/L (35-129); Anion Gap 17 mmol/L; BUN/Creatinine Ratio 22; Blood Urea Nitrogen 13 mg/dL (7-17); Calcium 9.1 mg/dL (8.4-10.2); Carbon Dioxide 25 mmol/L (22-30); Chloride 103.3 mmol/L (98-107); Glucose 90 mg/dL (65-100); Lipase 50 units/L (13-60); Sodium 141 mmol/L (137-145); Total Protein 7.5 g/dL (6.3-8.2)
[2017-08-16 01:05] LABS: Bilirubin,Urine NEG (Negative); Blood,Urine NEG (Negative); Ketones,Urine NEG (Negative); Leukocyte Esterase,Urine NEG (Negative); Mucus,Urine FEW /HPF; Nitrite,Urine NEG (Negative); Protein,Urine <15 mg/dL mg/dL (Negative); Urobilinogen,Urine < 2.0 mg/dL (<2.0)
[2017-08-16] MEDS ORDERED: TORADOL IM ONE (01:12)
--- NOTE | 2017-08-16 01:19 | Emergency Department Report ---
ED Abdominal Pain HPI - General Chief Complaint: Abdominal Pain Stated Complaint: RIGHT SIDE ABDOMINAL AND BACK PAIN Time Seen by Provider: 08/16/17 01:07 Source: patient Mode of arrival: Ambulatory Limitations: No Limitations - History of Present Illness Initial Comments: Patient is 32 years old female with no significant past medical history Weeks' history of right flank pain right lower quadrant pain, patient described her pain as stabbing and sometimes fullness. She denied any nausea or vomiting. She stated that she'd been having diarrhea for the last 2 days. Patient denied any fever. MD Complaint: abdominal pain, flank pain -: Gradual, week(s) Location: R flank Severity scale (0 -10): 8 Quality: stabbing, fullness - Related Data Previous Rx's Medication Instructions Recorded Last Taken Type Ibuprofen [Motrin] 800 mg PO Q8HR PRN #30 tablet 10/14/16 05/21/17 Rx ALBUTEROL Inhaler [Proair] 2 puff IH QID PRN #1 inhalation 02/03/17 Unknown Rx Ibuprofen [Motrin] 800 mg PO Q8HR PRN #60 tablet 05/23/17 Unknown Rx Oxycodone HCl/Acetaminophen 1 each PO Q6HR PRN #45 tablet 05/23/17 Unknown Rx [Percocet 10/325 mg] Azithromycin [Zithromax Z-JESSI] 250 mg PO DAILY #6 tablet 06/07/17 Unknown Rx Guaifenesin/Codeine Phosphate 5 ml PO BID PRN #110 ml 06/07/17 Unknown Rx [Guaifenesin-Codeine Liquid] Allergies Allergy/AdvReac Type Severity Reaction Status Date / Time banana Allergy throat Verified 06/06/17 17:07 itches ED Review of Systems ROS: Stated complaint: RIGHT SIDE ABDOMINAL AND BACK PAIN Other details as noted in HPI Comment: All other systems reviewed and negative Constitutional: denies: chills, diaphoresis, fever, malaise, weakness Respiratory: denies: cough, orthopnea, shortness of breath, SOB with exertion Cardiovascular: denies: chest pain, palpitations, dyspnea on exertion, orthopnea , edema Gastrointestinal: abdominal pain, diarrhea. denies: nausea, vomiting, constipation, hematemesis, melena, hematochezia Genitourinary: denies: urgency, dysuria, frequency, hematuria Musculoskeletal: back pain. denies: joint swelling Neurological: denies: headache ED Past Medical Hx - Past Medical History Previous Medical History?: Yes Hx Arthritis: Yes (R HAND) Hx Headaches / Migraines: Yes Hx Asthma: Yes (Seasonal flare ups. Uses inhaler.) Additional medical history: Ovarian Cyst removed in 2015 - Surgical History Past Surgical History?: Yes Additional Surgical History: TUBAL LIGATION 2008. Ovarian Cyst Removal 05/31/2016 - Social History Smoking Status: Current Every Day Smoker Substance Use Type: Alcohol - Medications Home Medications: Home Medications Medication Instructions Recorded Confirmed Last Taken Type Ibuprofen [Motrin] 800 mg PO Q8HR PRN #30 tablet 10/14/16 05/23/17 05/21/17 Rx ALBUTEROL Inhaler [Proair] 2 puff IH QID PRN #1 inhalation 02/03/17 05/23/17 Unknown Rx Ibuprofen [Motrin] 800 mg PO Q8HR PRN #60 tablet 05/23/17 Unknown Rx Oxycodone HCl/Acetaminophen 1 each PO Q6HR PRN #45 tablet 05/23/17 Unknown Rx [Percocet 10/325 mg] Azithromycin [Zithromax Z-JESSI] 250 mg PO DAILY #6 tablet 06/07/17 Unknown Rx Guaifenesin/Codeine Phosphate 5 ml PO BID PRN #110 ml 06/07/17 Unknown Rx [Guaifenesin-Codeine Liquid] ED Physical Exam - General Limitations: No Limitations General appearance: alert, in no apparent distress - Head Head exam: Present: normocephalic - Eye Eye exam: Present: normal appearance - ENT ENT exam: Present: normal exam - Neck Neck exam: Present: normal inspection - Respiratory Respiratory exam: Present: normal lung sounds bilaterally. Absent: respiratory distress, wheezes, rales, rhonchi, chest wall tenderness - Cardiovascular Cardiovascular Exam: Present: regular rate, normal rhythm, normal heart sounds - GI/Abdominal GI/Abdominal exam: Present: soft, tenderness (right lower quadrant), normal bowel sounds. Absent: distended, guarding, rebound, rigid, organomegaly, mass, bruit, pulsatile mass, hernia - Extremities Exam Extremities exam: Present: normal inspection. Absent: pedal edema - Back Exam Back exam: Present: CVA tenderness (R). Absent: full ROM, tenderness, CVA tenderness (L), muscle spasm, paraspinal tenderness, vertebral tenderness - Neurological Exam Neurological exam: Present: alert, oriented X3, CN II-XII intact, normal gait - Skin Skin exam: Present: warm, intact, normal color ED Course Vital Signs 08/15/17 08/16/17 08/16/17 20:03 00:47 02:00 Temperature 99.1 F 98.6 F Pulse Rate 80 72 77 Respiratory 18 18 16 Rate Blood Pressure 142/95 Blood Pressure 137/91 139/88 [Right] O2 Sat by Pulse 100 100 100 Oximetry - Reevaluation(s) Reevaluation #1: 08/16/17 02:53 Patient stated that she is feeling much better ED Medical Decision Making - Lab Data Result diagrams: 08/15/17 19:37 08/15/17 19:37 - Radiology Data Radiology results: report reviewed CT abdomen and pelvis unremarkable Critical care attestation.: If time is entered above; I have spent that time in minutes in the direct care of this critically ill patient, excluding procedure time. ED Disposition Clinical Impression: Abdominal pain Disposition: DC-01 TO HOME OR SELFCARE Is pt being admited?: No Condition: Stable Instructions: Abdominal Pain (ED) Referrals: DARIAN JIANG MD [Primary Care Provider] - 3-5 Days
--- NOTE | 2017-08-16 02:11 | Cat Scan Report ---
FINAL REPORT EXAM: CT ABDOMEN PELVIS WO CON HISTORY: ABDOMINAL PAIN, rt flank pain COMPARISON: March 15, 2017. TECHNIQUE: Contiguous axial images were obtained. Additional sagittal and coronal reformatted images were obtained. FINDINGS: Lung bases are clear. Gallbladder is contracted. No calcified gallstones. Liver, spleen, pancreas and adrenal glands are grossly unremarkable. No nephrolithiasis or hydronephrosis. Aorta and IVC are normal in caliber. No distal ureteral urinary bladder calculi. There are few left-sided pelvic phleboliths which appear to be separate from the distal ureter. Uterus is unremarkable. Probable prior tubal ligation. No free fluid or lymphadenopathy. Large and small bowel loops are normal in caliber. The appendix is normal in caliber. No inflammatory changes the bowel or appendix. Mild degenerative changes of the lumbar spine. Lumbar vertebral body heights are preserved. Bony pelvis is grossly intact. IMPRESSION: No gross focal inflammatory changes of the abdomen and pelvis. No obstructive uropathy or urolithiasis. Large and small bowel loops normal in caliber. The appendix is normal in caliber.
[2017-08-16 03:14] VITALS: BP 126/67
== END 2017-08-16 03:15 | disposition home or self-care (01) ==
LOC: ED 18:05
DX: R10.31 Right lower quadrant pain (principal); M19.90 Unspecified osteoarthritis, unspecified site; G43.909 Migraine, unspecified, not intractable, without status migrainosus; F17.200 Nicotine dependence, unspecified, uncomplicated; Z91.018 Allergy to other foods
CPT/HCPCS: 36415; 74176; 80053; 81001; 83690; 84703; 85025; 96372; 99284; J1885

== ENCOUNTER 2017-09-28 14:20 | Emergency (ER) | payer MEDICAID ==
[2017-09-28] MEDS ORDERED: DELTASONE PO ONE (15:51)
[2017-09-28] MEDS ORDERED: DUONEB *Not for PRN Use IH ONE (15:51)
[2017-09-28] MEDS ORDERED: BENADRYL PO ONE (15:52)
--- NOTE | 2017-09-28 16:16 | Emergency Department Report ---
- General Chief Complaint: Upper Respiratory Infection Stated Complaint: COUGH Time Seen by Provider: 09/28/17 15:19 Source: patient Mode of arrival: Ambulatory Limitations: No Limitations - History of Present Illness Initial Comments: 32-year-old female past medical history asthma, smoker presents with complaint of 2 weeks of persistent cough runny nose and sinus congestion. Patient is awake alert and oriented 3. Denies chest pain or palpitations. States she has multiple sick contacts at home with similar symptoms. The patient is a hospital employee. Patient speaking in full sentences and no audible wheezing or stridor but does have a persistent cough. MD Complaint: cough, sore throat, rhinorrhea, nasal congestion Onset/Timin -: week(s) Severity: moderate Improves With: nothing Associated Symptoms: cough Treatments Prior to Arrival: none - Related Data Previous Rx's Medication Instructions Recorded Last Taken Type Ibuprofen [Motrin] 800 mg PO Q8HR PRN #30 tablet 10/14/16 05/21/17 Rx ALBUTEROL Inhaler [Proair] 2 puff IH QID PRN #1 inhalation 02/03/17 Unknown Rx Ibuprofen [Motrin] 800 mg PO Q8HR PRN #60 tablet 05/23/17 Unknown Rx Oxycodone HCl/Acetaminophen 1 each PO Q6HR PRN #45 tablet 05/23/17 Unknown Rx [Percocet 10/325 mg] Azithromycin [Zithromax Z-JESSI] 250 mg PO DAILY #6 tablet 06/07/17 Unknown Rx Guaifenesin/Codeine Phosphate 5 ml PO BID PRN #110 ml 06/07/17 Unknown Rx [Guaifenesin-Codeine Liquid] Metaxalone [Skelaxin] 800 mg PO TID #30 tablet 08/16/17 Unknown Rx Naproxen [Naprosyn] 500 mg PO BID #14 tablet 08/16/17 Unknown Rx Acetaminophen/Codeine [Tylenol 1 tab PO Q6H PRN #5 tab 09/28/17 Unknown Rx /Codeine # 3 tab] Albuterol Sulfate [Ventolin Hfa] 1 puff IH Q4H PRN #1 hfa.aer.ad 09/28/17 Unknown Rx Azithromycin [Zithromax Z-JESSI] 250 mg PO QDAY #1 pack 09/28/17 Unknown Rx Phenylephrine/Dm/Acetaminop/GG 10 ml PO Q6H PRN #1 liquid 09/28/17 Unknown Rx [Mucinex Vciv-Hfp-Lwjhksgdbn Lq] predniSONE [Deltasone] 40 mg PO QDAY #10 tab 09/28/17 Unknown Rx Allergies Allergy/AdvReac Type Severity Reaction Status Date / Time banana Allergy throat Verified 06/06/17 17:07 itches ED Review of Systems ROS: Stated complaint: COUGH Other details as noted in HPI Constitutional: denies: chills, fever Eyes: denies: eye pain, eye discharge, vision change ENT: denies: ear pain, throat pain Respiratory: cough. denies: shortness of breath, wheezing Cardiovascular: denies: chest pain, palpitations Endocrine: no symptoms reported Gastrointestinal: denies: abdominal pain, nausea, diarrhea Genitourinary: denies: urgency, dysuria, discharge Musculoskeletal: denies: back pain, joint swelling, arthralgia Skin: denies: rash, lesions Neurological: denies: headache, weakness, paresthesias Psychiatric: denies: anxiety, depression Hematological/Lymphatic: denies: easy bleeding, easy bruising ED Past Medical Hx - Past Medical History Hx Arthritis: Yes (R HAND) Hx Headaches / Migraines: Yes Hx Asthma: Yes (Seasonal flare ups. Uses inhaler.) Additional medical history: Ovarian Cyst removed in 2015 - Surgical History Additional Surgical History: TUBAL LIGATION 2008. Ovarian Cyst Removal 05/31/2016 - Social History Smoking Status: Current Every Day Smoker Substance Use Type: None - Medications Home Medications: Home Medications Medication Instructions Recorded Confirmed Last Taken Type Ibuprofen [Motrin] 800 mg PO Q8HR PRN #30 tablet 10/14/16 05/23/17 05/21/17 Rx ALBUTEROL Inhaler [Proair] 2 puff IH QID PRN #1 inhalation 02/03/17 05/23/17 Unknown Rx Ibuprofen [Motrin] 800 mg PO Q8HR PRN #60 tablet 05/23/17 Unknown Rx Oxycodone HCl/Acetaminophen 1 each PO Q6HR PRN #45 tablet 05/23/17 Unknown Rx [Percocet 10/325 mg] Azithromycin [Zithromax Z-JESSI] 250 mg PO DAILY #6 tablet 06/07/17 Unknown Rx Guaifenesin/Codeine Phosphate 5 ml PO BID PRN #110 ml 06/07/17 Unknown Rx [Guaifenesin-Codeine Liquid] Metaxalone [Skelaxin] 800 mg PO TID #30 tablet 08/16/17 Unknown Rx Naproxen [Naprosyn] 500 mg PO BID #14 tablet 08/16/17 Unknown Rx Acetaminophen/Codeine [Tylenol 1 tab PO Q6H PRN #5 tab 09/28/17 Unknown Rx /Codeine # 3 tab] Albuterol Sulfate [Ventolin Hfa] 1 puff IH Q4H PRN #1 hfa.aer.ad 09/28/17 Unknown Rx Azithromycin [Zithromax Z-JESSI] 250 mg PO QDAY #1 pack 09/28/17 Unknown Rx Phenylephrine/Dm/Acetaminop/GG 10 ml PO Q6H PRN #1 liquid 09/28/17 Unknown Rx [Mucinex Ygnr-Tcz-Yogoijygdr Lq] predniSONE [Deltasone] 40 mg PO QDAY #10 tab 09/28/17 Unknown Rx ED Physical Exam - General Limitations: No Limitations General appearance: alert, in no apparent distress - Head Head exam: Present: atraumatic, normocephalic - Eye Eye exam: Present: normal appearance, PERRL, EOMI - ENT ENT exam: Present: mucous membranes moist - Expanded ENT Exam Expanded Throat exam: Positive: tonsillar erythema (minor tonsillar erythema uvula is midline no MANAGER CT. Oropharynx patent) - Neck Neck exam: Present: normal inspection, full ROM - Respiratory Respiratory exam: Present: normal lung sounds bilaterally. Absent: respiratory distress - Cardiovascular Cardiovascular Exam: Present: regular rate, normal rhythm. Absent: systolic murmur, diastolic murmur, rubs, gallop - GI/Abdominal GI/Abdominal exam: Present: soft, normal bowel sounds - Extremities Exam Extremities exam: Present: normal inspection - Back Exam Back exam: Present: normal inspection - Neurological Exam Neurological exam: Present: alert, oriented X3 - Psychiatric Psychiatric exam: Present: normal affect, normal mood - Skin Skin exam: Present: warm, dry, intact, normal color. Absent: rash ED Course Vital Signs 09/28/17 14:54 Temperature 98.4 F Pulse Rate 98 H Respiratory 18 Rate Blood Pressure 124/67 O2 Sat by Pulse 99 Oximetry ED Medical Decision Making - Medical Decision Making A/P: Acute bronchitis, reactive airway disease 1-influenza, RSV, strep swab is negative 2-there are delays in x-ray reads. As per my x-ray read patient may have increased bronchial thickening right side. Will treat empirically with azithromycin as she has had more than one week of persistent cough is an asthmatic and a smoker. 3-Mucinex when necessary, cepacol throat lozenges when necessary 4- refill on albuterol inhaler, short course prednisone 5- advised patient to reduce her smoking as she currently has an upper airway infection. Follow-up with primary care. Critical care attestation.: If time is entered above; I have spent that time in minutes in the direct care of this critically ill patient, excluding procedure time. ED Disposition Clinical Impression: Cough in adult Acute bronchitis Qualifiers: Bronchitis organism: unspecified organism Qualified Code(s): J20.9 - Acute bronchitis, unspecified Reactive airway disease Qualifiers: Asthma severity: moderate Asthma persistence: persistent Asthma complication type: uncomplicated Qualified Code(s): J45.40 - Moderate persistent asthma, uncomplicated Disposition: TO HOME OR SELFCARE Is pt being admited?: No Does the pt Need Aspirin: No Condition: Stable Instructions: Acute Bronchitis (ED) Prescriptions: Acetaminophen/Codeine [Tylenol /Codeine # 3 tab] 1 tab PO Q6H PRN #5 tab PRN Reason: Cough Albuterol Sulfate [Ventolin Hfa] 1 puff IH Q4H PRN #1 hfa.aer.ad PRN Reason: Wheezing Azithromycin [Zithromax Z-JESSI] 250 mg PO QDAY #1 pack Phenylephrine/Dm/Acetaminop/GG [Mucinex Ebpc-Wfp-Pcbddtvtbi Lq] 10 ml PO Q6H PRN #1 liquid PRN Reason: Cough predniSONE [Deltasone] 40 mg PO QDAY #10 tab Referrals: [facility] [Outside] - 3-5 Days [facility] [Outside] - 3-5 Days Forms: Work/School Release Form(ED) Time of Disposition: 17:10
[2017-09-28] MEDS ORDERED: TYLENOL #3 PO ONE (17:41)
[2017-09-28 17:45] VITALS: BP 130/84
--- NOTE | 2017-09-28 18:17 | XRay Report ---
FINAL REPORT EXAM: XR CHEST ROUTINE 2V HISTORY: persistent worsening cough TECHNIQUE: 2 view examination of the chest PRIORS: None FINDINGS: There is no visible pulmonary consolidation, pleural effusion, or pneumothorax. Cardiac silhouette size is normal without vascular congestion. No visible acute displaced fracture in the regional skeleton. IMPRESSION: No evidence of acute cardiopulmonary disease
== END 2017-09-28 17:48 | disposition home or self-care (01) ==
LOC: ED 14:20
DX: J45.20 Mild intermittent asthma, uncomplicated (principal); J20.9 Acute bronchitis, unspecified; F17.200 Nicotine dependence, unspecified, uncomplicated; G43.909 Migraine, unspecified, not intractable, without status migrainosus; Z91.018 Allergy to other foods; M19.90 Unspecified osteoarthritis, unspecified site
CPT/HCPCS: 71020; 87116; 87400; 87430; 87491; 94640; 99283; J7512